=== PATIENT | female | born 1930 | race Caucasian/White ===

== ENCOUNTER 2018-03-25 11:23 | Inpatient (IN) ==
--- NOTE | 2018-03-25 11:38 | ERNOTE ---
Date of Service: 03/25/18 Time Seen by Provider: 03/25/18 11:38 Stated Complaint: sob Presenting Symptoms:: cough Source: patient Exam Limitations: no limitations Immunizations: IMMUNIZATION HX Immunizations Up to Date Yes History of Influenza Vaccine Yes Allergies/Adverse Reactions: Allergies atorvastatin [From Lipitor] Adverse Reaction (Unknown, Verified 03/25/18 11:37) cough codeine Adverse Reaction (Unknown, Verified 03/25/18 11:37) Vomiting morphine Adverse Reaction (Unknown, Verified 03/25/18 11:37) redness niacin [From Niaspan Extended-Release] Adverse Reaction (Unknown, Verified 03/25/18 11:37) red and shakey simvastatin [From Zocor] Adverse Reaction (Unknown, Verified 03/25/18 11:37) cough Home Medications: HOME MEDICATIONS cholecalciferol (vitamin D3) 1,000 unit capsule 1,000 unit PO DAILY 09/02/17 [Last Taken Unknown] levothyroxine 50 mcg tablet 50 mcg PO DAILY 09/02/17 [Last Taken Unknown] propranolol 20 mg tablet 20 mg PO DAILY #90 tab 12/21/17 [Last Taken Unknown] valsartan 160 mg tablet 160 mg PO DAILY #90 tab 01/18/18 [Last Taken Unknown] furosemide 20 mg tablet 20 mg PO DAILY #30 tab 01/25/18 [Last Taken Unknown] metformin 500 mg tablet 250 mg PO BID #90 tab 02/18/18 [Last Taken Unknown] Amoxicillin/Potassium Clav [Amox Tr-K Clv 875-125 mg Tab] 1 ea PO BID 03/25/18 [Last Taken Unknown] Benzonatate 100 mg PO PRN PRN 03/25/18 [Last Taken Unknown] Methylprednisolone [Medrol] 4 mg PO DAILY 03/25/18 [Last Taken Unknown] traMADol HCL [Tramadol HCl] 50 mg PO DAILY PRN 03/25/18 [Last Taken Unknown] - Pain Score Pain Score #1 Pain Score: 0 - History of Present Ilness Narrative: The patient is a 87 year old female who presents for dyspnea and chest pain which has been present since Thursday. There are associated symptoms of fatigue, nausea, cough and diarrhea. The patient denies pain. There are no alleviating factors. There are aggravating factors of activity. Previous treatments have included: neb treatments and was evaluated yesterday at [facility] but did not start atb that was rx. The past medical history includes: ulcerative colitis, depression, DM, diverticulitis, HTN and hypothyroid. The social hist ory is negative. The patient has had no known ill contacts. Patient reports sternal pain only with cough. Review of Systems - Review of Systems Constitutional: Present: fatigue. Absent: fever EYE: Present: no symptoms reported ENT: Present: no symptoms reported. Absent: ear pain, nasal drainage, sore throat Respiratory: Present: shortness of breath, cough Cardiology: Present: chest pain Gastrointestinal/Abdominal: Present: nausea, diarrhea. Absent: vomiting, abdominal pain Genitourinary: Present: no symptoms reported. Absent: dysuria, decreased urinary output Musculoskeletal: Present: no symptoms reported. Absent: back pain Skin: Present: no symptoms reported. Absent: rash Neurological: Present: no symptoms reported Endocrine: Present: no symptoms reported Hematologic/Lymphatic: Present: no symptoms reported Psych: Present: no symptoms reported All Other Systems: All systems neg except as marked Medical History (Last Reviewed 03/25/18 @ 11:46 by ZANDRA Avalos) Colonic polyp Onset Date: Unknown Depression Onset Date: Unknown Diabetes mellitus Onset Date: Unknown type II Diverticulitis of colon Onset Date: Unknown Hypercholesterolemia Onset Date: Unknown Hypertension Onset Date: Unknown Hypothyroidism (acquired) Onset Date: 12/10/09 Knee pain, left Onset Date: ~02/11/18 Shoulder pain, right Onset Date: ~02/11/18 Tremor, essential Onset Date: Unknown Ulcerative colitis Onset Date: Unknown Surgical History: Surgical History (Last Reviewed 03/25/18 @ 11:46 by ZANDRA Avalos) History of bilateral knee arthroplasty Onset Date: Unknown History of carpal tunnel release Onset Date: Unknown right History of left hip replacement Onset Date: Unknown History of lumbar surgery Onset Date: 06/2005 performed lower disc surgery, 1999 pt had spurs removed History of right hip replacement Onset Date: Unknown Hx of appendectomy Onset Date: 10/29/92 Hx of breast surgery Onset Date: 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 [facility] Hx of colonoscopy Onset Date: 01/21/06 Hx of hysterectomy Onset Date: 06/1993 Hx of knee surgery Onset Date: 1997 performed a right knee scope left knee repair Onset Date: Unknown Family History: Family History (Last Reviewed 03/25/18 @ 11:46 by ZANDRA Avalos) Mother Cancer bowel and kidney Father Heart disease Social History: Preferred Language Greek Smoking Status Never smoker Alcohol Use none Drug Use none (Last Updated 02/27/18 @ 14:22 by Balbir Ojeda MD) No Social History Section defined Physical Exam - Physical Exam General Appearance: Present: wd/wn, alert, moderate distress Head Exam: Present: normal inspection Eye Exam: Normal inspection: bilateral Ears, Nose, Throat: Present: normal ENT inspection, normal pharynx Neck: Present: normal inspection, nontender Respiratory: Present: chest nontender, respiratory distress, accessory muscle use - abdomen, decreased breath sounds - right mid lung. Absent: wheezing Cardiovascular/Chest: Present: regular rate, rhythm, no murmur Gastrointestinal/Abdominal: Present: normal bowel sounds, nontender, nondistended, soft, no organomegaly Extremity Exam: Absent: extremity edema Neurological Exam: Present: alert, oriented, normal mood/affect Skin Exam: Present: normal color, warm/dry Progress - Date and Time Seen: Date and Time: 03/25/18 13:36 Discussed case with . Patient will be admitted for acute admission due to hypoxia, pneumonia PSI IV, DM and renal insuff. - Results and Orders Patient's Lab Results:: I have reviewed the patient's lab results. - Vital Signs Patient's Vital Signs:: I have reviewed the patient's vital signs. Vital Signs: Vital Signs 03/25/18 11:33 Temperature 36.4 C Pulse Rate 88 Respiratory Rate 24 H Blood Pressure 138/67 O2 Sat by Pulse Oximetry 73 L - EKG EKG #1 EKG: NSR EKG read: Reviewed by me - X-Ray X-Ray #1 X-Ray: chest Interpretation: Reviewed by me X-ray Comments: X-RAY REPORT ~[id number] RAD/Chest PA & Lateral *~ Exam Date: 03/25/2018 11:43 Ordering Physician: Nisha DE PAZ HISTORY: Chest Pain. Additional history from technologist: TROUBLE BREATHING SINCE THURSDAY, JUST HAD A BREATHING TREATMENT. A LOT OF COUGHING, CHEST PAIN. TECHNIQUE: PA and lateral views of the chest were obtained. 2 images. COMPARISONS: None Available FINDINGS: Chest PA Lateral * Hypoinflated lung volumes. Patient has patchy peripheral airspace opacities, and peripheral reticulations/increased interstitial markings involving the bilateral lung bennett, predominantly mid to lower aspects. There is obscuration of the central vascular markings, with increased pulmonary vasculature suggested. No pneumothorax or pleural fluid collections. The cardiac silhouette is somewhat obscured by the multifocal opacities but no definite cardiac enlargement suggested. Mild tortuosity of the thoracic aorta noted, with overlying atherosclerotic vascular calcifications. Trachea is in normal position. Bones show degenerative changes of the spine. Patient has what appears to be degenerative changes of bilateral shoulders, likely chronic rotator cuff pathology is of both shoulders. IMPRESSION: 1. Hypoventilatory changes. 2. Patchy bilateral peripheral airspace opacities, and reticulations/increased interstitial markings. Increased vascular markings also suggested. Consider pulmonary vascular congestion/interstitial and alveolar edema (with etiologies to include CHF, volume overload) versus multifocal pneumonia/infectious process causing this appearance. Also consider acute respiratory distress syndrome. Recommend follow-up to document resolution, as underlying neoplasm would be difficult to exclude. 3. Additional comments are as above. Electronically signed by Deepak Haskins M.D.. - Progress/Reassessment Chief Complaint: Upper Respiratory Symptoms Progress:: Improved Departure Clinical Impression: Renal insufficiency, Hypoxia Pneumonia Qualifiers: Pneumonia type: due to unspecified organism Laterality: bilateral Lung location: lower lobe of lung Qualified Code(s): J18.1 - Lobar pneumonia, unspecified organism Diabetes mellitus Qualifiers: Diabetes mellitus type: type 2 Diabetes mellitus director long term care insulin use: without mcfp use Diabetes mellitus complication status: with hyperglycemia Qualified Code(s): E11.65 - Type 2 diabetes mellitus with hyperglycemia - Departure Disposition: Still a patient Condition: Fair
[2018-03-25] MEDS ORDERED: METHYLPREDNISOLONE SOD SUCC/PF 125 MG/2 ML VIAL IV ONE (11:51)
[2018-03-25] MEDS ORDERED: ALBUTEROL SULFATE/IPRATROPIUM 3 ML NEBU IH ONE (11:51)
[2018-03-25 11:59] LABS: Hematocrit 30.1 % (37.0-47.0); Mean Cell Volume 87.2 fl (78-100); Mean Corpuscular Hgb Conc 33.2 g/dl (32-36); Mean Platelet Volume 10.4 fl (8-12.5); Platelet Count 327 K/mm3 (150-450); Red Blood Count 3.45 M/mm3 (4.2-5.4); Red Cell Distribution Width 12.8 % (11.5-14.0); White Blood Count 30.9 K/mm3 (4.0-10.5)
[2018-03-25 12:12] LABS: Total Cells Counted 100
[2018-03-25 12:15] LABS: Prothrombin Time (Patient) 11.1 Seconds (9.0-11.0)
[2018-03-25 12:19] LABS: INR 1.11 INR (0.90-1.10); Partial Thrombolplastin Time 26.1 Seconds (24-32)
[2018-03-25] MEDS ORDERED: cefTRIAXone SODIUM 1,000 MG/100 ML BAG IV ONE (12:20)
[2018-03-25 12:22] LABS: ALT 52 U/L (19-67); Albumin * 2.6 gm/dl (3.4-5.0); Alkaline Phosphatase * 131 U/L (50-170); BUN/Creatinine Ratio 28.4 (9.0-21.6); Bilirubin, Total 1.2 mg/dL (0.0-1.1); Blood Urea Nitrogen 50 mg/dL (3-23); Ca. Corrected For Albumin 10.8 mg/dL (8.4-10.2); Carbon Dioxide 23.2 mmol/L (24-32.6); Chloride 97 mmol/L (97-106); Glucose * 404 mg/dL (70-110); Potassium 4.2 mmol/L (3.4-4.6); Sodium 133 mmol/L (132-142); Total Protein 7.7 gm/dL (6.2-8.2); Troponin I Less than 0.017 ng/mL (0.00-0.10)
[2018-03-25] MEDS ORDERED: NORMAL SALINE 500 ML IV ONE (12:24)
[2018-03-25 12:34] LABS: AST 58 U/L (0-48)
[2018-03-25 12:46] LABS: Atypical (Reactive) Lymph 1 % (0-2); Band 1 % (0-2.0); Dohle Bodies 1+; Lymphocyte 8 % (20-51); Neutrophil 90 % (42-75); Neutrophil # 27.8 K/mm3 (1.3-6.0); Platelet Estimate Normal (NORMAL)
[2018-03-25] MEDS ORDERED: AZITHROMYCIN 250 MG TABLET PO ONE (13:15)
[2018-03-25] MEDS ORDERED: NORMAL SALINE 1,000 ML IV PRN (13:26)
[2018-03-25] MEDS ORDERED: traMADol HCL 50 MG TABLET PO PRN (15:59)
[2018-03-25] MEDS ORDERED: BENZONATATE 100 MG CAPSULE PO PRN (15:59)
[2018-03-25] MEDS: INSULIN LISPRO 100 UNITS/ML VIAL SC SCH ×3 (16:07→20:54)
--- NOTE | 2018-03-25 16:41 | HP ---
Chief Complaint - Chief Complaint Date of Service: 03/25/18 Time of Service: 16:22 Chief Complaint: weakness/cough History of Present Illness: Adelina Lanier, is an 87-year-old white female, with past medical history of diabetes mellitus type 2, ulcerative colitis, hyperlipidemia, hypothyroidism, hypertension, who was admitted on 03/25/2018 because of increasing shortness of breath and generalized weakness. The patient started having cough with on and off production of phlegm since 5 days prior to admission. She started getting generalized weakness with with nausea and diarrhea and so she went to the walk- in clinic in [facility] where she was started on antibiotics and giving given breathing treatments and nebs and sent home. The emergency room she was found to be hypoxic (75% on RA), tachypneic (RR 24). She was also found to have an elevated white blood cell count of 30,000+, and a chest x-ray which showed b/l pneumonia vs pulmonary congestion congestion versus ARDS, Cr of 1.7 with a GFR 29. The patient was then admitted for further treatment. Medical History (Last Reviewed 03/25/18 @ 14:13 by Deng Krishnan RN) Colonic polyp Onset Date: Unknown Depression Onset Date: Unknown Diabetes mellitus Onset Date: Unknown type II Diverticulitis of colon Onset Date: Unknown Hypercholesterolemia Onset Date: Unknown Hypertension Onset Date: Unknown Hypothyroidism (acquired) Onset Date: 12/10/09 Knee pain, left Onset Date: ~02/11/18 Shoulder pain, right Onset Date: ~02/11/18 Tremor, essential Onset Date: Unknown Ulcerative colitis Onset Date: Unknown Surgical History: Surgical History (Last Reviewed 03/25/18 @ 14:14 by Deng Krishnan RN) History of bilateral knee arthroplasty Onset Date: Unknown History of carpal tunnel release Onset Date: Unknown right History of left hip replacement Onset Date: Unknown History of lumbar surgery Onset Date: 06/2005 performed lower disc surgery, 1999 pt had spurs removed History of right hip replacement Onset Date: Unknown Hx of appendectomy Onset Date: 10/29/92 Hx of breast surgery Onset Date: 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 Smoking Status Never smoker Have you smoked in the past 12 No months Do you dip or chew tobacco No Alcohol Use none Drug Use none (Last Updated 02/27/18 @ 14:22 by Balbir Ojeda MD) No Social History Section defined Review Of Systems (GEN) - Review of Systems Generalized/Overall Review: Present: Weakness. Absent: Chills, Fever EENTM: Absent: Blurred Vision Respiratory: Present: Cough, Shortness of Breath, Wheezing Cardiac: Absent: Chest Pain, Edema, Palpitations Abdominal: Present: Nausea, Diarrhea. Absent: Vomiting Genitourinary: Absent: Urgency, Frequency Musculoskeletal: Absent: Joint Pain, Back Pain Neurological: Absent: Anxiety, Depressed Skin: Absent: Bruising Endocrine: Absent: Intolerance to Cold, Intolerance to Heat Immunizations: IMMUNIZATION HX Immunizations Up to Date Yes History of Influenza Vaccine Yes Allergies/Adverse Reactions: Allergies Allergy/AdvReac Type Severity Reaction Status Date / Time atorvastatin [From Lipitor] AdvReac Unknown cough Verified 03/25/18 14:15 codeine AdvReac Unknown Vomiting Verified 03/25/18 14:15 morphine AdvReac Unknown redness Verified 03/25/18 14:15 niacin AdvReac Unknown red and Verified 03/25/18 14:15 [From Niaspan shakey Extended-Release] simvastatin [From Zocor] AdvReac Unknown cough Verified 03/25/18 14:15 Home Medications: HOME MEDICATIONS cholecalciferol (vitamin D3) 1,000 unit capsule 1,000 unit PO DAILY 09/02/17 [Last Taken Unknown] levothyroxine 50 mcg tablet 50 mcg PO DAILY 09/02/17 [Last Taken Unknown] propranolol 20 mg tablet 20 mg PO DAILY #90 tab 12/21/17 [Last Taken Unknown] furosemide 20 mg tablet 20 mg PO DAILY #30 tab 01/25/18 [Last Taken Unknown] metformin 500 mg tablet 250 mg PO BID #90 tab 02/18/18 [Last Taken Unknown] Amoxicillin/Potassium Clav [Amox Tr-K Clv 875-125 mg Tab] 1 ea PO BID 03/25/18 [Last Taken Unknown] Benzonatate 100 mg PO PRN PRN 03/25/18 [Last Taken Unknown] Methylprednisolone [Medrol] 4 mg PO DAILY 03/25/18 [Last Taken Unknown] Pravastatin Sodium 40 mg PO DAILY 03/25/18 [Last Taken Unknown] Valsartan 100 mg PO DAILY 03/25/18 [Last Taken Unknown] traMADol HCL [Tramadol HCl] 50 mg PO DAILY PRN 03/25/18 [Last Taken Unknown] Exam - Exam Vital Signs: Vital Signs - Last Taken Temp 36.6 C 03/25/18 14:33 Pulse 84 03/25/18 14:33 Resp 20 03/25/18 14:33 BP 143/60 03/25/18 14:33 Pulse Ox 92 L 03/25/18 14:33 Constitutional: Present: Alert, Oriented x3, Cooperative, Elderly ENT Exam: Present: hearing grossly normal Eye Exam: bilateral eye: normal inspection, PERRL, EOMI Neck: Present: supple Respiratory: Present: decreased breath sounds, crackles, wheezing Cardiovascular/Chest: Present: regular rate, rhythm, no JVD, no murmur Abdomen: Present: Normal bowel sounds, soft, nontender, nondistended Extremity: Present: no pedal edema, no calf tenderness Diagnostic Studies: Abnormal Lab Results 03/25/18 03/25/18 03/25/18 Range/Units 11:55 11:55 11:55 WBC 30.9 H (4.0-10.5) K/mm3 RBC 3.45 L (4.2-5.4) M/mm3 Hgb 10.0 L (12.5-16.0) gm/dL Hct 30.1 L (37.0-47.0) % Neutrophils % (Manual) 90 H (42-75) % Lymphocytes % (Manual) 8 L (20-51) % Neutrophils # (Manual) 27.8 H (1.3-6.0) K/mm3 PT 11.1 H (9.0-11.0) Seconds INR (Anticoag Therapy) 1.11 H (0.90-1.10) INR pCO2 30.7 L (32.0-45.0) mmHg pO2 74.8 L (83.0-108.0) mmHg HCO3 18.9 L (21.0-28.0) mmol/L Base Excess -4.9 L (-2.0-3.0) mmol/L Carbon Dioxide (24-32.6) mmol/L Anion Gap (6.8-13.8) mmol/L BUN (3-23) mg/dL Creatinine (0.4-1.4) mg/dL Est GFR (Non-Af Amer) (60-130) mL/min BUN/Creatinine Ratio (9.0-21.6) Random Glucose (70-110) mg/dL Calcium Adj for Albumin (8.4-10.2) mg/dL Total Bilirubin (0.0-1.1) mg/dL AST (0-48) U/L Albumin (3.4-5.0) gm/dl 03/25/18 Range/Units 11:55 WBC (4.0-10.5) K/mm3 RBC (4.2-5.4) M/mm3 Hgb (12.5-16.0) gm/dL Hct (37.0-47.0) % Neutrophils % (Manual) (42-75) % Lymphocytes % (Manual) (20-51) % Neutrophils # (Manual) (1.3-6.0) K/mm3 PT (9.0-11.0) Seconds INR (Anticoag Therapy) (0.90-1.10) INR pCO2 (32.0-45.0) mmHg pO2 (83.0-108.0) mmHg HCO3 (21.0-28.0) mmol/L Base Excess (-2.0-3.0) mmol/L Carbon Dioxide 23.2 L (24-32.6) mmol/L Anion Gap 17.0 H (6.8-13.8) mmol/L BUN 50 H (3-23) mg/dL Creatinine 1.76 H (0.4-1.4) mg/dL Est GFR (Non-Af Amer) 29 L (60-130) mL/min BUN/Creatinine Ratio 28.4 H (9.0-21.6) Random Glucose 404 H (70-110) mg/dL Calcium Adj for Albumin 10.8 H (8.4-10.2) mg/dL Total Bilirubin 1.2 H (0.0-1.1) mg/dL AST 58 H (0-48) U/L Albumin 2.6 L (3.4-5.0) gm/dl Laboratory Results WBC 30.9 K/mm3 (4.0-10.5) H 03/25/18 11:55 RBC 3.45 M/mm3 (4.2-5.4) L 03/25/18 11:55 Hgb 10.0 gm/dL (12.5-16.0) L 03/25/18 11:55 Hct 30.1 % (37.0-47.0) L 03/25/18 11:55 MCV 87.2 fl (78-100) 03/25/18 11:55 MCH 29.0 pg (27-31) 03/25/18 11:55 MCHC 33.2 g/dl (32-36) 03/25/18 11:55 RDW 12.8 % (11.5-14.0) 03/25/18 11:55 Plt Count 327 K/mm3 (150-450) 03/25/18 11:55 MPV 10.4 fl (8-12.5) 03/25/18 11:55 Neutrophils % (Manual) 90 % (42-75) H 03/25/18 11:55 Band Neuts % (Manual) 1 % (0-2.0) 03/25/18 11:55 Lymphocytes % (Manual) 8 % (20-51) L 03/25/18 11:55 Neutrophils # (Manual) 27.8 K/mm3 (1.3-6.0) H 03/25/18 11:55 Lymphocytes # (Manual) 2.5 k/mm3 (1.5-3.5) 03/25/18 11:55 Atypic/Reactive Lymphs 1 % (0-2) 03/25/18 11:55 Toxic Vacuolation Trace 03/25/18 11:55 Dohle Bodies 1+ 03/25/18 11:55 Platelet Estimate Normal (NORMAL) 03/25/18 11:55 PT 11.1 Seconds (9.0-11.0) H 03/25/18 11:55 INR (Anticoag Therapy) 1.11 INR (0.90-1.10) H 03/25/18 11:55 PTT (Evelyne) 26.1 Seconds (24-32) 03/25/18 11:55 pCO2 30.7 mmHg (32.0-45.0) L 03/25/18 11:55 pO2 74.8 mmHg (83.0-108.0) L 03/25/18 11:55 HCO3 18.9 mmol/L (21.0-28.0) L 03/25/18 11:55 Total CO2 19.8 mmol/L (19.0-24.0) 03/25/18 11:55 Base Excess -4.9 mmol/L (-2.0-3.0) L 03/25/18 11:55 ABG pH 7.41 (7.35-7.45) 03/25/18 11:55 ABG O2 Sat (Measured) 95.3 % (94.0-98.0) 03/25/18 11:55 Sodium 133 mmol/L (132-142) 03/25/18 11:55 Plasma Sodium 138 mmol/L (130-142) 03/25/18 11:55 Potassium 4.2 mmol/L (3.4-4.6) 03/25/18 11:55 Chloride 97 mmol/L (97-106) 03/25/18 11:55 Carbon Dioxide 23.2 mmol/L (24-32.6) L 03/25/18 11:55 Anion Gap 17.0 mmol/L (6.8-13.8) H 03/25/18 11:55 BUN 50 mg/dL (3-23) H 03/25/18 11:55 Creatinine 1.76 mg/dL (0.4-1.4) H 03/25/18 11:55 Est GFR (Non-Af Amer) 29 mL/min (60-130) L 03/25/18 11:55 BUN/Creatinine Ratio 28.4 (9.0-21.6) H 03/25/18 11:55 Random Glucose 404 mg/dL (70-110) H 03/25/18 11:55 Lactic Acid, Venous 2.0 mmol/L (0.4-2.0) 03/25/18 11:55 Calcium 10.0 mg/dL (7.9-10.9) 03/25/18 11:55 Calcium Adj for Albumin 10.8 mg/dL (8.4-10.2) H 03/25/18 11:55 Total Bilirubin 1.2 mg/dL (0.0-1.1) H 03/25/18 11:55 AST 58 U/L (0-48) H 03/25/18 11:55 ALT 52 U/L (19-67) 03/25/18 11:55 Alkaline Phosphatase 131 U/L (50-170) 03/25/18 11:55 Troponin I Less than 0.017 ng/mL (0.00-0.10) 03/25/18 11:55 Total Protein 7.7 gm/dL (6.2-8.2) 03/25/18 11:55 Albumin 2.6 gm/dl (3.4-5.0) L 03/25/18 11:55 Influenza Type A Ag Negative (NEGATIVE) 03/25/18 11:55 Influenza Type B Ag Negative (NEGATIVE) 03/25/18 11:55 Assessment/Plan - Assessment/Plan (1) Hypoxia Assessment: continue with O2 2 L NC. Problem: Acute (2) Pneumonia Assessment: CAP vs aspiration pneumonia . continue with IV antibiotics. will also start her on breathing treatments and IV solumedrol. ADDENDUM- patient was choking wth liquids- will get ST eval and treat. Problem: Acute Qualifiers: Pneumonia type: due to unspecified organism Laterality: bilateral Lung location: lower lobe of lung Qualified Code(s): J18.1 - Lobar pneumonia, unspecified organism (3) Hypothyroidism Assessment: continue with home medications Problem: Chronic Qualifiers: Hypothyroidism type: unspecified Qualified Code(s): E03.9 - Hypothyroidism, unspecified (4) CRF (chronic renal failure) Assessment: continue with IVF. will d/c metformin Problem: Chronic Qualifiers: Chronic kidney disease stage: stage 4 (severe) Qualified Code(s): N18.4 - Chronic kidney disease, stage 4 (severe) (5) Hypertension Assessment: whill change her valsartan to losartn 50 mg PO q daily. Problem: Chronic Qualifiers: Hypertension type: essential hypertension (6) Diabetes mellitus Assessment: d/c metformin and will statr her on accuxheck with Lispro coverage , moderate dose protocol. Problem: Chronic Qualifiers: Diabetes mellitus type: type 2 Diabetes mellitus termite control representative insulin use: without jail use Diabetes mellitus complication status: with kidney comp lications Diabetes mellitus complication detail: with chronic kidney disease Chronic kidney disease stage: stage 4 (severe) Qualified Code(s): E11.22 - Type 2 diabetes mellitus with diabetic chronic kidney disease; N18.4 - Chronic kidney disease, stage 4 (severe) (7) Choking due to food (regurgitated) Assessment: will get ST eval and treatment. in the meantime will do nectar thickened fluid and mechanical soft diet. Problem: Acute Qualifiers: Encounter type: initial encounter Qualified Code(s): T17.320A - Food in larynx causing asphyxiation, initial encounter
[2018-03-25] MEDS: ENOXAPARIN SODIUM 30 MG/0.3 ML SYRG SC SCH (17:30)
[2018-03-25] MEDS: METHYLPREDNISOLONE SOD SUCC/PF 40 MG/ML VIAL IV SCH ×2 (17:30→23:09)
[2018-03-25] MEDS: ALBUTEROL SULFATE/IPRATROPIUM 3 ML NEBU IH SCH ×2 (17:57→17:59)
[2018-03-26] MEDS: ALBUTEROL SULFATE/IPRATROPIUM 3 ML NEBU IH SCH ×4 (00:06→18:26)
[2018-03-26] MEDS: METHYLPREDNISOLONE SOD SUCC/PF 40 MG/ML VIAL IV SCH ×3 (05:30→20:08)
[2018-03-26 07:37] LABS: Hematocrit 31.6 % (37.0-47.0); Hemoglobin 10.2 gm/dL (12.5-16.0); Mean Cell Volume 88.3 fl (78-100); Mean Corpuscular Hemoglobin 28.5 pg (27-31); Mean Corpuscular Hgb Conc 32.3 g/dl (32-36); Mean Platelet Volume 10.5 fl (8-12.5); Platelet Count 377 K/mm3 (150-450); Red Blood Count 3.58 M/mm3 (4.2-5.4); White Blood Count 41.5 K/mm3 (4.0-10.5)
[2018-03-26 07:40] LABS: Anion Gap 15.4 mmol/L (6.8-13.8); BUN/Creatinine Ratio 29.3 (9.0-21.6); Calcium * 9.3 mg/dL (7.9-10.9); Carbon Dioxide 23.8 mmol/L (24-32.6); Estimated Creat Clear 19.2; Potassium 4.2 mmol/L (3.4-4.6); Total Cells Counted 100
[2018-03-26] MEDS: INSULIN LISPRO 100 UNITS/ML VIAL SC SCH ×4 (07:44→20:35)
[2018-03-26] MEDS: LEVOTHYROXINE SODIUM 50 MCG TABLET PO SCH (07:45)
[2018-03-26 07:52] LABS: Band 8 % (0-2.0); Lymphocyte 7 % (20-51); Neutrophil 85 % (42-75); Neutrophil # 35.3 K/mm3 (1.3-6.0); Platelet Estimate Normal (NORMAL); RBC Morphology Normal (NORMAL)
[2018-03-26] MEDS ORDERED: FUROSEMIDE 10 MG/ML VIAL IV ONE (08:00)
[2018-03-26] MEDS: PROPRANOLOL HCL 20 MG TABLET PO SCH (08:07)
[2018-03-26] MEDS: SACCHAROMYCES BOULARDII 250 MG CAPSULE PO SCH ×2 (08:07→20:19)
[2018-03-26] MEDS: FUROSEMIDE 20 MG TABLET PO SCH (08:08)
[2018-03-26] MEDS: AZITHROMYCIN 250 MG TABLET PO SCH (08:12)
[2018-03-26] MEDS: PIPERACILLIN SODIUM/TAZOBACTAM 3.375 GM in DEXTROSE 5 % IN WATER 100 ML IV SCH ×4 (08:14→20:12)
[2018-03-26] MEDS ORDERED: LOSARTAN POTASSIUM 50 MG TABLET PO SCH (09:00)
--- NOTE | 2018-03-26 09:53 | PN ---
Subjective - Date and Time Seen Date: 03/26/18 Time: 09:25 Subjective Narrative: Patient found to have low O2 saturation. CPAP started. Patient says she is not worst or better than yesterday. WBC is up . Objective - Review of Systems Generalized/Overall Review: Reports: Weakness. Denies: Chills, Fever EENTM: Denies: Blurred Vision Respiratory: Reports: Cough, Shortness of Breath. Denies: Wheezing Cardiac: Denies: Chest Pain, Edema, Palpitations Abdominal: Denies: Nausea, Vomiting Genitourinary Symptoms: Denies: Urgency, Frequency Musculoskeletal Complaints: Reports: Joint Pain Neurological: Denies: Headache, Tremors Skin: Denies: Rash, Bruising Endocrine: Denies: Intolerance to Cold, Intolerance to Heat - Vitals Vitals: Last Vital Signs Temp 36.4 C 03/26/18 07:00 Pulse 98 03/26/18 08:20 Resp 24 H 03/26/18 07:00 BP 180/82 H 03/26/18 08:20 Pulse Ox 88 L 03/26/18 07:00 - Abnormal Lab Findings Abnormal Lab Findings: Abnormal Lab Results 03/25/18 03/25/18 03/25/18 Range/Units 11:55 11:55 11:55 WBC 30.9 H (4.0-10.5) K/mm3 RBC 3.45 L (4.2-5.4) M/mm3 Hgb 10.0 L (12.5-16.0) gm/dL Hct 30.1 L (37.0-47.0) % Neutrophils % (Manual) 90 H (42-75) % Band Neuts % (Manual) (0-2.0) % Lymphocytes % (Manual) 8 L (20-51) % Neutrophils # (Manual) 27.8 H (1.3-6.0) K/mm3 PT 11.1 H (9.0-11.0) Seconds INR (Anticoag Therapy) 1.11 H (0.90-1.10) INR pCO2 30.7 L (32.0-45.0) mmHg pO2 74.8 L (83.0-108.0) mmHg HCO3 18.9 L (21.0-28.0) mmol/L Total CO2 (19.0-24.0) mmol/L Base Excess -4.9 L (-2.0-3.0) mmol/L ABG pH (7.35-7.45) ABG O2 Sat (Measured) (94.0-98.0) % Carbon Dioxide (24-32.6) mmol/L Anion Gap (6.8-13.8) mmol/L BUN (3-23) mg/dL Creatinine (0.4-1.4) mg/dL Est GFR (Non-Af Amer) (60-130) mL/min BUN/Creatinine Ratio (9.0-21.6) Random Glucose (70-110) mg/dL Calcium Adj for Albumin (8.4-10.2) mg/dL Total Bilirubin (0.0-1.1) mg/dL AST (0-48) U/L B-Natriuretic Peptide (5-550) pg/mL Albumin (3.4-5.0) gm/dl Procalcitonin (0.05-0.50) ng/mL 03/25/18 03/25/18 03/25/18 Range/Units 11:55 11:55 16:02 WBC (4.0-10.5) K/mm3 RBC (4.2-5.4) M/mm3 Hgb (12.5-16.0) gm/dL Hct (37.0-47.0) % Neutrophils % (Manual) (42-75) % Band Neuts % (Manual) (0-2.0) % Lymphocytes % (Manual) (20-51) % Neutrophils # (Manual) (1.3-6.0) K/mm3 PT (9.0-11.0) Seconds INR (Anticoag Therapy) (0.90-1.10) INR pCO2 (32.0-45.0) mmHg pO2 (83.0-108.0) mmHg HCO3 (21.0-28.0) mmol/L Total CO2 (19.0-24.0) mmol/L Base Excess (-2.0-3.0) mmol/L ABG pH (7.35-7.45) ABG O2 Sat (Measured) (94.0-98.0) % Carbon Dioxide 23.2 L (24-32.6) mmol/L Anion Gap 17.0 H (6.8-13.8) mmol/L BUN 50 H (3-23) mg/dL Creatinine 1.76 H (0.4-1.4) mg/dL Est GFR (Non-Af Amer) 29 L (60-130) mL/min BUN/Creatinine Ratio 28.4 H (9.0-21.6) Random Glucose 404 H (70-110) mg/dL Calcium Adj for Albumin 10.8 H (8.4-10.2) mg/dL Total Bilirubin 1.2 H (0.0-1.1) mg/dL AST 58 H (0-48) U/L B-Natriuretic Peptide 3081 H (5-550) pg/mL Albumin 2.6 L (3.4-5.0) gm/dl Procalcitonin 0.55 H (0.05-0.50) ng/mL 03/26/18 03/26/18 03/26/18 Range/Units 07:25 07:25 07:40 WBC 41.5 H D (4.0-10.5) K/mm3 RBC 3.58 L (4.2-5.4) M/mm3 Hgb 10.2 L (12.5-16.0) gm/dL Hct 31.6 L (37.0-47.0) % Neutrophils % (Manual) 85 H (42-75) % Band Neuts % (Manual) 8 H (0-2.0) % Lymphocytes % (Manual) 7 L (20-51) % Neutrophils # (Manual) 35.3 H (1.3-6.0) K/mm3 PT (9.0-11.0) Seconds INR (Anticoag Therapy) (0.90-1.10) INR pCO2 (32.0-45.0) mmHg pO2 56.9 L (83.0-108.0) mmHg HCO3 17.4 L (21.0-28.0) mmol/L Total CO2 18.5 L (19.0-24.0) mmol/L Base Excess -8.0 L (-2.0-3.0) mmol/L ABG pH 7.31 L (7.35-7.45) ABG O2 Sat (Measured) 87.4 L (94.0-98.0) % Carbon Dioxide 23.8 L (24-32.6) mmol/L Anion Gap 15.4 H (6.8-13.8) mmol/L BUN 51 H (3-23) mg/dL Creatinine 1.74 H (0.4-1.4) mg/dL Est GFR (Non-Af Amer) 29 L (60-130) mL/min BUN/Creatinine Ratio 29.3 H (9.0-21.6) Random Glucose 331 H (70-110) mg/dL Calcium Adj for Albumin (8.4-10.2) mg/dL Total Bilirubin (0.0-1.1) mg/dL AST (0-48) U/L B-Natriuretic Peptide (5-550) pg/mL Albumin (3.4-5.0) gm/dl Procalcitonin (0.05-0.50) ng/mL - Exam Constitutional: Present: Alert, Oriented x3, Cooperative, Elderly ENT Exam: Present: hearing grossly normal Neck: Present: supple Respiratory: Present: decreased breath sounds, crackles, No wheezing Cardiovascular/Chest: Present: regular rate, rhythm, no JVD, no murmur Abdomen: Present: Normal bowel sounds, soft, nontender, nondistended Extremity: Present: no pedal edema, no calf tenderness Cauti Physician Documentation - Urinary Catheter Management Suprapubic Urethral Indwelling: No Assessment/Plan - Problems/Diagnosis (1) Hypoxia Problem: Acute Narrative: due to pneumonia r/o due to pulmonary congestion. IV lasix given. hold IVF and saline lock with flushes. continue with breathing treatment. will get CXR. . ABG shows normal AG metabolic acidosis with respiratory alkalosis. will add lactic acid ( unlikely as this would be AG MAc) to her blood work and urine for electolytes to see if with RTA. (2) Pneumonia Problem: Acute Qualifiers: Pneumonia type: due to unspecified organism Laterality: bilateral Lung location: lower lobe of lung Qualified Code(s): J18.1 - Lobar pneumonia, unspecified organism Narrative: WBC is up. IV solumedrol started yesterday. will change her IV rocephin + azithromycin to IV zosyn + azithromycin. consider adding IV vancomycin if still w/o improvement. consider perpipheral smear if still increasing WBC. will do a follow CXR. (3) Hypothyroidism Problem: Chronic Qualifiers: Hypothyroidism type: unspecified Qualified Code(s): E03.9 - Hypothyroidism, unspecified (4) CRF (chronic renal failure) Problem: Chronic Qualifiers: Chronic kidney disease stage: stage 4 (severe) Qualified Code(s): N18.4 - Chronic kidney disease, stage 4 (severe) (5) Hypertension Problem: Chronic Qualifiers: Hypertension type: essential hypertension Qualified Code(s): I10 - Essential (primary) hypertension (6) Diabetes mellitus Problem: Chronic Qualifiers: Diabetes mellitus type: type 2 Diabetes mellitus director long term care insulin use: without director long term care use Diabetes mellitus complication status: with kidney complications Diabetes mellitus complication detail: with chronic kidney disease Chronic kidney disease stage: stage 4 (severe) Qualified Code(s): E11.22 - Type 2 diabetes mellitus with diabetic chronic kidney disease; N18.4 - Chronic kidney disease, stage 4 (severe) (7) Choking due to food (regurgitated) Problem: Acute Qualifiers: Encounter type: initial encounter Qualified Code(s): T17.320A - Food in larynx causing asphyxiation, initial encounter
[2018-03-26] MEDS: ENOXAPARIN SODIUM 30 MG/0.3 ML SYRG SC SCH (17:51)
[2018-03-26] MEDS: ROSUVASTATIN CALCIUM 10 MG TABLET PO SCH (20:24)
[2018-03-26] MEDS: INSULIN GLARGINE,HUM.REC.ANLOG 100 UNITS/ML VIAL SC SCH (20:38)
[2018-03-27] MEDS: ALBUTEROL SULFATE/IPRATROPIUM 3 ML NEBU IH SCH ×4 (00:08→18:17)
[2018-03-27] MEDS: METHYLPREDNISOLONE SOD SUCC/PF 40 MG/ML VIAL IV SCH ×2 (00:28→05:41)
[2018-03-27] MEDS: LEVOTHYROXINE SODIUM 50 MCG TABLET PO SCH (06:30)
[2018-03-27] MEDS: INSULIN LISPRO 100 UNITS/ML VIAL SC SCH ×4 (07:41→20:12)
[2018-03-27] MEDS: PIPERACILLIN SODIUM/TAZOBACTAM 3.375 GM in DEXTROSE 5 % IN WATER 100 ML IV SCH ×4 (08:08→20:06)
[2018-03-27] MEDS: PROPRANOLOL HCL 20 MG TABLET PO SCH (08:39)
[2018-03-27] MEDS: FUROSEMIDE 20 MG TABLET PO SCH (08:39)
[2018-03-27] MEDS: SACCHAROMYCES BOULARDII 250 MG CAPSULE PO SCH ×2 (08:39→20:11)
[2018-03-27] MEDS: AZITHROMYCIN 250 MG TABLET PO SCH (08:40)
--- NOTE | 2018-03-27 11:00 | PN ---
Subjective - Date and Time Seen Date: 03/27/18 Time: 08:45 Subjective Narrative: Adelina Lanier is an 87-year-old female patient of who was admitted on 03/25/2018 for pneumonia, renal insufficiency, and diabetes. She requested to be placed on hospice but she has no support at home and will be unable to care for herself and her home. Her son is coming in today and will arrive this afternoon. She is feeling better today feels like she has more en ergy and strength and is getting better. She has required an increase in her FiO2 and NRB and CPAP. She is at 45% FiO2. She does not use oxygen at home. There has been improvement in her white count and lactic acid levels. She has a flutter device but can't remember to use it. He'll continue with current antibiotic therapy and respiratory therapy. We'll wean her off her oxygen as it allows. Objective - Review of Systems Generalized/Overall Review: Reports: Weakness, Malaise, Fatigue. Denies: Chills, Fever EENTM: Reports: No Symptoms Reported Respiratory: Reports: Cough - Complains of having a dark productive sputum but denies blood. Cardiac: Reports: No Symptoms Reported Abdominal: Reports: No Symptoms Reported Genitourinary Symptoms: Reports: No Symptoms Reported Musculoskeletal Complaints: Reports: No Symptoms Reported Neurological: Reports: No Symptoms Reported Skin: Reports: No Symptoms Reported Endocrine: Reports: No Symptoms Reported - Vitals Vitals: Last Vital Signs Temp 36.7 C 03/27/18 06:46 Pulse 103 H 03/27/18 08:39 Resp 32 H 03/27/18 06:46 BP 143/65 03/27/18 08:39 Pulse Ox 93 03/27/18 06:46 - Abnormal Lab Findings Abnormal Lab Findings: Abnormal Lab Results 03/26/18 03/26/18 Range/Units 13:44 16:10 Lactic Acid, Venous 2.4 H* (0.4-2.0) mmol/L Ur Random Chloride 132 H (55-125) - Exam Constitutional: Present: Alert, Oriented x3, Cooperative, Well developed, Well nourished, Mild distress ENT Exam: Present: normal ENT inspection, hearing grossly normal, pharynx normal Neck: Present: non-tender, full range of motion, supple, normal inspection, trachea midline Breasts: Present: Exam deferred Respiratory: Present: chest non-tender, decreased breath sounds - On the right., crackles, rhonchi - In the right chest heard both anterior and posterior. The left lungs clear. Diminished breath sounds on the right also.. Absent: No wheezing Cardiovascular/Chest: Present: normal peripheral pulses, regular rate, rhythm, no chest tenderness, no edema, no gallop, no JVD, no murmur, no rub Abdomen: Present: Normal bowel sounds, soft, nontender, nondistended, no rebound tenderness, no hepatospenomegaly, no masses /Rectal: Present: Exam deferred Extremity: Present: normal range of motion, non-tender, normal inspection, no pedal edema, no calf tenderness, normal capillary refill Skin Exam: Present: normal color, warm/dry, no cyanosis Lymphatic: Present: no adenopathy Neurologic: Present: electric meter tester shop II-XII nml as tested, no motor/sensory deficits, alert Appearance: Present: appropriate appearance, appropriate insight, neat, no memory impairment Eye contact: Present: cooperative, good eye contact Thoughts: Present: normal thought pattern, no apparent hallucination Cauti Physician Documentation - Urinary Catheter Management Suprapubic Cath placed during this visit: no Urethral Indwelling: No Reason for Continuing Indwelling Catheter: Other - 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 Continue with current IV fluid replacement 2. Continue antibiotic therapy 3. Progress diet as tolerated 4. Ordered a flutter device and encouraged her to use it every couple of hours while awake 5. Incentive spirometry every couple of hours while awake - Problems/Diagnosis (1) Pneumonia Problem: Acute Qualifiers: Pneumonia type: due to unspecified organism Laterality: bilateral Lung location: lower lobe of lung Qualified Code(s): J18.1 - Lobar pneumonia, unspecified organism (2) Renal insufficiency Problem: Acute (3) Hypoxia Problem: Acute (4) Diabetes mellitus Problem: Chronic Qualifiers: Diabetes mellitus type: type 2 Diabetes mellitus customer account specialist insulin use: without customer account specialist use Diabetes mellitus complication status: with kidney complications Diabetes mellitus complication detail: with chronic kidney disease Chronic kidney disease stage: stage 4 (severe) Qualified Code(s): E11.22 - Type 2 diabetes mellitus with diabetic chronic kidney disease; N18.4 - Chronic kidney disease, stage 4 (severe)
[2018-03-27] MEDS ORDERED: INSULIN LISPRO 100 UNITS/ML VIAL SC ONE (14:00)
[2018-03-27] MEDS: ENOXAPARIN SODIUM 30 MG/0.3 ML SYRG SC SCH (17:14)
[2018-03-27] MEDS: ROSUVASTATIN CALCIUM 10 MG TABLET PO SCH (20:10)
[2018-03-27] MEDS: INSULIN GLARGINE,HUM.REC.ANLOG 100 UNITS/ML VIAL SC SCH (20:14)
[2018-03-27] MEDS: METOPROLOL TARTRATE 25 MG TABLET PO SCH (23:08)
[2018-03-28] MEDS: ALBUTEROL SULFATE/IPRATROPIUM 3 ML NEBU IH SCH ×4 (00:06→18:09)
[2018-03-28] MEDS: ALBUTEROL SULFATE 2.5 MG/0.5 ML VIAL.NEB IH PRN (03:40)
[2018-03-28 06:33] LABS: Hematocrit 29.6 % (37.0-47.0); Hemoglobin 9.7 gm/dL (12.5-16.0); Mean Cell Volume 86.5 fl (78-100); Mean Corpuscular Hemoglobin 28.4 pg (27-31); Mean Corpuscular Hgb Conc 32.8 g/dl (32-36); Mean Platelet Volume 10.2 fl (8-12.5); Platelet Count 321 K/mm3 (150-450); Red Blood Count 3.42 M/mm3 (4.2-5.4); Red Cell Distribution Width 13.2 % (11.5-14.0); White Blood Count 35.2 K/mm3 (4.0-10.5)
[2018-03-28 06:46] LABS: Total Cells Counted 100
[2018-03-28 06:55] LABS: Albumin * 2.2 gm/dl (3.4-5.0); Anion Gap 16.7 mmol/L (6.8-13.8); BUN/Creatinine Ratio 40.3 (9.0-21.6); Bilirubin, Total 0.8 mg/dL (0.0-1.1); Ca. Corrected For Albumin 10.3 mg/dL (8.4-10.2); Calcium * 9.2 mg/dL (7.9-10.9); Carbon Dioxide 26.7 mmol/L (24-32.6); Potassium 3.4 mmol/L (3.4-4.6); Total Protein 6.4 gm/dL (6.2-8.2)
[2018-03-28 07:05] LABS: Lymphocyte 6 % (20-51); Monocyte 3 % (0-9); Neutrophil 91 % (42-75)
[2018-03-28] MEDS: INSULIN LISPRO 100 UNITS/ML VIAL SC SCH ×4 (07:23→21:09)
[2018-03-28] MEDS: LEVOTHYROXINE SODIUM 50 MCG TABLET PO SCH (07:29)
[2018-03-28 07:31] LABS: Platelet Estimate Normal (NORMAL); RBC Morphology Normal (NORMAL)
[2018-03-28] MEDS: PIPERACILLIN SODIUM/TAZOBACTAM 3.375 GM in DEXTROSE 5 % IN WATER 100 ML IV SCH ×4 (08:05→20:44)
[2018-03-28] MEDS: METOPROLOL TARTRATE 25 MG TABLET PO SCH ×2 (08:09→21:05)
[2018-03-28] MEDS: AZITHROMYCIN 250 MG TABLET PO SCH (08:09)
[2018-03-28] MEDS: PROPRANOLOL HCL 20 MG TABLET PO SCH (08:09)
[2018-03-28] MEDS: FUROSEMIDE 20 MG TABLET PO SCH (08:09)
[2018-03-28] MEDS: SACCHAROMYCES BOULARDII 250 MG CAPSULE PO SCH ×2 (08:09→21:04)
--- NOTE | 2018-03-28 11:21 | PN ---
Subjective - Date and Time Seen Date: 03/28/18 Time: 10:00 Subjective Narrative: Adelina is feeling quite a bit better this morning. She is sitting up in a chair and notices that she is feeling stronger and is not as short of breath. She is using her flutter device and is coughing up dark brownish mucus. She's had no chest discomfort. She is now on 40% FiO2. We will start weaning her oxygen as her O2 sats allow. Last night, about midnight, she went into atrial f ibrillation with intermittent RVR. A 12-lead EKG was done and shows atrial flutter with RVR and an 11 beat amy of SVT. She has been on propranolol 20 mg twice a day. I added metoprolol 25 mg twice a day and will discontinue the propranolol. This morning she is in atrial fibrillation but with a controlled ventricular response rate and there is no further findings were SVT or RVR. She is now on telemetry as well. The chest x-ray this morning shows alveolar infiltrates bilaterally suggestive of mild pulmonary vascular congestion versus pneumonia. I suspect she has both and probably pneumonia has wants tipped her over into atrial fibrillation and mild congestive failure. Objective - Review of Systems Generalized/Overall Review: Reports: Weakness, Fatigue EENTM: Reports: No Symptoms Reported Respiratory: Reports: Cough, Shortness of Breath Cardiac: Reports: No Symptoms Reported Abdominal: Reports: No Symptoms Reported Genitourinary Symptoms: Reports: No Symptoms Reported Musculoskeletal Complaints: Reports: No Symptoms Reported Neurological: Reports: No Symptoms Reported, Weakness Skin: Reports: No Symptoms Reported Endocrine: Reports: No Symptoms Reported Misc: All systems neg except as marked - Vitals Vitals: Last Vital Signs Temp 36 C 03/28/18 10:00 Pulse 72 03/28/18 10:00 Resp 20 03/28/18 10:00 BP 142/60 03/28/18 10:00 Pulse Ox 94 03/28/18 10:00 - Abnormal Lab Findings Abnormal Lab Findings: Abnormal Lab Results 03/28/18 03/28/18 03/28/18 Range/Units 06:10 06:10 06:58 WBC 35.2 H (4.0-10.5) K/mm3 RBC 3.42 L (4.2-5.4) M/mm3 Hgb 9.7 L (12.5-16.0) gm/dL Hct 29.6 L (37.0-47.0) % Neutrophils % (Manual) 91 H (42-75) % Lymphocytes % (Manual) 6 L (20-51) % Neutrophils # (Manual) 32.0 H (1.3-6.0) K/mm3 Monocytes # (Manual) 1.1 H (0.0-1.0) k/mm3 Percent Retic 2.4 H (0.4-1.8) % Immature Retic Fraction 27.2 H (3.0-15.9) % Sodium 145 H (132-142) mmol/L Plasma Sodium 146 H (130-142) mmol/L Anion Gap 16.7 H (6.8-13.8) mmol/L BUN 62 H (3-23) mg/dL Creatinine 1.54 H (0.4-1.4) mg/dL Est GFR (Non-Af Amer) 34 L (60-130) mL/min BUN/Creatinine Ratio 40.3 H (9.0-21.6) Random Glucose 146 H D (70-110) mg/dL Calcium Adj for Albumin 10.3 H (8.4-10.2) mg/dL AST 59 H (0-48) U/L Albumin 2.2 L (3.4-5.0) gm/dl - EKG/Xray Findings EKG: supravent. tachycardia, atrial fibrillation EKG read: Interp. by me Interpretation: Reviewed by me - Exam Constitutional: Present: Alert, Oriented x3, Cooperative, Well developed, Well nourished, Mild distress ENT Exam: Present: normal ENT inspection, hearing grossly normal, nasal congestion Neck: Present: non-tender, supple, normal inspection, trachea midline, limited range of motion Respiratory: Present: chest non-tender, decreased breath sounds - But better by far than yesterday., crackles, rhonchi, wheezing Cardiovascular/Chest: Present: normal peripheral pulses, irregularly irregular - Rate controlled Abdomen: Present: Normal bowel sounds, soft, nontender, nondistended, no rebound tenderness, no hepatospenomegaly, no masses - Equivocal HJR /Rectal: Present: Exam deferred Extremity: Present: normal range of motion Skin Exam: Present: normal color Lymphatic: Present: no adenopathy Neurologic: Present: machine filler servicer II-XII nml as tested Appearance: Present: appropriate appearance Eye contact: Present: cooperative Thoughts: Present: normal thought pattern, no apparent hallucination Cauti Physician Documentation - Urinary Catheter Management Suprapubic Urethral Indwelling: No Assessment/Plan Plan Narrative: 1. Continue current respiratory therapy. 2. Continue monitoring apart and oxygen saturations 3. Lasix 20 mg IV push 1 dose only 4. Wean from oxygen as able - Problems/Diagnosis (1) Pneumonia Problem: Acute Qualifiers: Pneumonia type: due to unspecified organism Laterality: bilateral Lung location: lower lobe of lung Qualified Code(s): J18.1 - Lobar pneumonia, unspecified organism (2) Renal insufficiency Problem: Acute (3) Hypoxia Problem: Acute (4) Diabetes mellitus Problem: Chronic Qualifiers: Diabetes mellitus type: type 2 Diabetes mellitus retirement insulin use: without certified scrub tech use Diabetes mellitus complication status: with kidney complications Diabetes mellitus complication detail: with chronic kidney disease Chronic kidney disease stage: stage 4 (severe) Qualified Code(s): E11.22 - Type 2 diabetes mellitus with diabetic chronic kidney disease; N18.4 - Chronic kidney disease, stage 4 (severe)
[2018-03-28] MEDS ORDERED: FUROSEMIDE 10 MG/ML VIAL IV ONE (11:30)
[2018-03-28] MEDS: ENOXAPARIN SODIUM 30 MG/0.3 ML SYRG SC SCH (17:25)
[2018-03-28] MEDS: ROSUVASTATIN CALCIUM 10 MG TABLET PO SCH (21:03)
[2018-03-28] MEDS: INSULIN GLARGINE,HUM.REC.ANLOG 100 UNITS/ML VIAL SC SCH (21:11)
[2018-03-29] MEDS: ALBUTEROL SULFATE/IPRATROPIUM 3 ML NEBU IH SCH ×4 (00:30→18:06)
--- NOTE | 2018-03-29 04:28 | PATHPSR ---
PHYSICIAN: Balbir Ojeda MD LAB#: [id number] SPECIMEN DATE: 03/29/2018 CLINICAL INFORMATION: The patient is an 87-year-old type II diabetic woman with chronic renal insufficiency, ulcerative colitis, hyperlipidemia, hypothyroidism and hypertension who was admitted on 03/25/2018 because of increasing shortness of breath and generalized weakness. The clinical diagnosis was a lobar p neumonia and the original WBC count is 30.9 K/mm3. Following 3 days of admission and treatment with antibiotics and breathing treatments on 03/28/2018 the WBC count has elevated to 35.2 K/mm3. Peripheral smear review by pathologist is ordered by Dr. Rocha for this reason. CBC: WBC 35.2 K/mm3, hemoglobin 9.7 gm/dl, hematocrit 29.6 %, MCV is 86.5 fl, MCH is 28.4 pg, MCHC is 32.8 g/dl, Platelet count 321,000/mm. Manual differential: Neutrophils 91 %, bands 0 %, lymphocytes 6 %, monocytes 3 %, eosinophils 0 %, basophils 0 %, atypical reactive lymphocytes 0 %. RED BLOOD CELLS: Normochromic normocytic anemia PLATELETS: No abnormalities WHITE BLOOD CELLS: Leukocytosis with marked neutrophilia DIAGNOSIS: PERIPHERAL BLOOD SMEAR, REVIEW BY PATHOLOGIST: -LEUKOCYTOSIS WITH MARKED RELATIVE NEUTROPHILIA, SEE COMMENT COMMENT: The findings are most consistent with a leukemoid reaction secondary to this patient's known acute infectious process of lobar pneumonia. However, if leukocytosis persists further evaluation to exclude a myeloproliferative disorders indicated including casework supervisor consultation and possible bone marrow evaluation. No immature elements or malignancy is identified on our examination.
[2018-03-29 05:49] LABS: Hematocrit 31.5 % (37.0-47.0); Hemoglobin 10.3 gm/dL (12.5-16.0); Mean Cell Volume 86.5 fl (78-100); Mean Corpuscular Hemoglobin 28.3 pg (27-31); Mean Corpuscular Hgb Conc 32.7 g/dl (32-36); Mean Platelet Volume 9.9 fl (8-12.5); Platelet Count 293 K/mm3 (150-450); Red Blood Count 3.64 M/mm3 (4.2-5.4); Red Cell Distribution Width 13.1 % (11.5-14.0); White Blood Count 26.1 K/mm3 (4.0-10.5)
[2018-03-29 05:57] LABS: Anion Gap 12.2 mmol/L (6.8-13.8); BUN/Creatinine Ratio 35.4 (9.0-21.6); Calcium * 8.9 mg/dL (7.9-10.9); Carbon Dioxide 30.8 mmol/L (24-32.6); Estimated Creat Clear 20.4
[2018-03-29 06:00] LABS: Total Cells Counted 100
[2018-03-29 06:26] LABS: Eosinophil 3 % (0-3); Lymphocyte 11 % (20-51); Monocyte 1 % (0-9); Neutrophil 85 % (42-75); Neutrophil # 22.2 K/mm3 (1.3-6.0); Platelet Estimate Normal (NORMAL); RBC Morphology Normal (NORMAL)
[2018-03-29] MEDS: LEVOTHYROXINE SODIUM 50 MCG TABLET PO SCH (07:48)
[2018-03-29] MEDS: INSULIN LISPRO 100 UNITS/ML VIAL SC SCH ×4 (07:48→21:38)
--- NOTE | 2018-03-29 08:41 | PN ---
Subjective - Date and Time Seen Date: 03/29/18 Time: 08:17 Subjective Narrative: WBC is down to 25. had AFib over the weekend with RVR. back to NSR this morning. Objective - Review of Systems Generalized/Overall Review: Reports: Weakness. Denies: Chills, Fever EENTM: Denies: Blurred Vision Respiratory: Reports: Cough - improvd, Shortness of Breath - improved. Denies: Wheezing Cardiac: Denies: Chest Pain, Edema, Palpitations Abdominal: Denies: Nausea, Vomiting Genitourinary Symptoms: Denies: Urgency, Frequency Musculoskeletal Complaints: Denies: Joint Pain Neurological: Denies: Headache Skin: Denies: Rash, Bruising Endocrine: Denies: Intolerance to Cold, Intolerance to Heat - Vitals Vitals: Last Vital Signs Temp 36.6 C 03/29/18 07:44 Pulse 109 H 03/29/18 07:44 Resp 20 03/29/18 07:44 BP 138/71 03/29/18 07:44 Pulse Ox 92 L 03/29/18 07:44 - Abnormal Lab Findings Abnormal Lab Findings: Abnormal Lab Results 03/28/18 03/29/18 03/29/18 Range/Units Unknown 05:35 05:35 WBC 26.1 H D (4.0-10.5) K/mm3 RBC 3.64 L (4.2-5.4) M/mm3 Hgb 10.3 L (12.5-16.0) gm/dL Hct 31.5 L (37.0-47.0) % Neutrophils % (Manual) 85 H (42-75) % Lymphocytes % (Manual) 11 L (20-51) % Neutrophils # (Manual) 22.2 H (1.3-6.0) K/mm3 Eosinophils # (Manual) 0.8 H (0.0-0.7) k/mm3 Potassium 3.0 L (3.4-4.6) mmol/L BUN 58 H (3-23) mg/dL Creatinine 1.64 H (0.4-1.4) mg/dL Est GFR (Non-Af Amer) 32 L (60-130) mL/min BUN/Creatinine Ratio 35.4 H (9.0-21.6) B-Natriuretic Peptide 9305 H (5-550) pg/mL - Exam Constitutional: Present: Alert, Oriented x3, Cooperative ENT Exam: Present: hearing grossly normal Neck: Present: supple Respiratory: Present: decreased breath sounds, crackles, No wheezing Cardiovascular/Chest: Present: regular rate, rhythm, no JVD, no murmur Abdomen: Present: Normal bowel sounds, soft, nontender, nondistended Extremity: Present: no pedal edema, no calf tenderness Cauti Physician Documentation - Urinary Catheter Management Suprapubic Urethral Indwelling: No Assessment/Plan - Problems/Diagnosis (1) Afib Problem: Acute Qualifiers: Atrial fibrillation type: paroxysmal Qualified Code(s): I48.0 - Paroxysmal atrial fibrillation Narrative: back to NSR. on Metoprolol and will increase to 50 mg PO BID. will start her on Eliquis. will get Echocardiogram. (2) Hypoxia Problem: Acute Narrative: continue with O2 and taper (3) Pneumonia Problem: Acute Qualifiers: Pneumonia type: due to unspecified organism Laterality: bilateral Lung location: lower lobe of lung Qualified Code(s): J18.1 - Lobar pneumonia, unspecified organism Narrative: continue with IV Zosyn and azithromycin. WBC is trending down and clinically feeling better (4) Hypothyroidism Problem: Chronic Qualifiers: Hypothyroidism type: unspecified Qualified Code(s): E03.9 - Hypothyroidism, unspecified Narrative: will check TSH. had Afib yesterday (5) CRF (chronic renal failure) Problem: Chronic Qualifiers: Chronic kidney disease stage: stage 3 (moderate) Qualified Code(s): N18.3 - Chronic kidney disease, stage 3 (moderate) Narrative: improved to Stage III from IV (6) Hypertension Problem: Chronic Qualifiers: Hypertension type: essential hypertension Qualified Code(s): I10 - Essential (primary) hypertension (7) Diabetes mellitus Problem: Chronic Qualifiers: Diabetes mellitus type: type 2 Diabetes mellitus assistant terminal manager insulin use: without shelter use Diabetes mellitus complication status: with kidney complications Diabetes mellitus complication detail: with chronic kidney disease Chronic kidney disease stage: stage 4 (severe) Qualified Code(s): E11.22 - Type 2 diabetes mellitus with diabetic chronic kidney disease; N18.4 - Chronic kidney disease, stage 4 (severe) (8) Choking due to food (regurgitated) Problem: Resolved Qualifiers: Encounter type: initial encounter Qualified Code(s): T17.320A - Food in larynx causing asphyxiation, initial encounter (9) Hypokalemia Problem: Acute Narrative: will supplement. likely due to diuretic. will give her KDur 40 meq PO x 1 and then 20 meq po daily/
[2018-03-29] MEDS ORDERED: POTASSIUM CHLORIDE 20 MEQ TABLET.SA PO ONE (08:42)
[2018-03-29] MEDS: SACCHAROMYCES BOULARDII 250 MG CAPSULE PO SCH ×2 (08:56→21:38)
[2018-03-29] MEDS: PIPERACILLIN SODIUM/TAZOBACTAM 3.375 GM in DEXTROSE 5 % IN WATER 100 ML IV SCH ×4 (08:56→19:43)
[2018-03-29] MEDS: METOPROLOL TARTRATE 25 MG TABLET PO SCH (08:57)
[2018-03-29] MEDS: AZITHROMYCIN 250 MG TABLET PO SCH (08:57)
[2018-03-29] MEDS: FUROSEMIDE 20 MG TABLET PO SCH (08:57)
[2018-03-29 09:02] LABS: T4 Free * 1.62 ng/dL (0.76-1.46); TSH * 1.413 uIU/mL (0.358-3.74)
[2018-03-29] MEDS: APIXABAN 2.5 MG TABLET PO SCH ×2 (09:02→21:38)
[2018-03-29] MEDS ORDERED: METOPROLOL TARTRATE 25 MG TABLET PO ONE (09:58)
[2018-03-29] MEDS: ALBUTEROL SULFATE 2.5 MG/0.5 ML VIAL.NEB IH PRN (13:07)
[2018-03-29] MEDS: ACETAMINOPHEN 325 MG TABLET PO PRN ×2 (14:42→21:55)
[2018-03-29] MEDS: METOPROLOL TARTRATE 50 MG TABLET PO SCH (21:39)
[2018-03-29] MEDS: INSULIN GLARGINE,HUM.REC.ANLOG 100 UNITS/ML VIAL SC SCH (21:39)
[2018-03-29] MEDS: ROSUVASTATIN CALCIUM 10 MG TABLET PO SCH (21:43)
[2018-03-30] MEDS: ALBUTEROL SULFATE/IPRATROPIUM 3 ML NEBU IH SCH ×4 (00:07→18:00)
[2018-03-30] MEDS: ACETAMINOPHEN 325 MG TABLET PO PRN ×3 (06:48→20:05)
[2018-03-30] MEDS: LEVOTHYROXINE SODIUM 50 MCG TABLET PO SCH (06:48)
[2018-03-30] MEDS: INSULIN LISPRO 100 UNITS/ML VIAL SC SCH ×4 (06:56→20:09)
[2018-03-30 07:48] LABS: Hematocrit 32.3 % (37.0-47.0); Hemoglobin 10.5 gm/dL (12.5-16.0); Mean Cell Volume 87.5 fl (78-100); Mean Corpuscular Hemoglobin 28.5 pg (27-31); Mean Corpuscular Hgb Conc 32.5 g/dl (32-36); Mean Platelet Volume 10.1 fl (8-12.5); Platelet Count 285 K/mm3 (150-450); Red Blood Count 3.69 M/mm3 (4.2-5.4); Red Cell Distribution Width 13.2 % (11.5-14.0)
[2018-03-30] MEDS: PIPERACILLIN SODIUM/TAZOBACTAM 3.375 GM in DEXTROSE 5 % IN WATER 100 ML IV SCH ×4 (07:50→20:02)
[2018-03-30 08:09] LABS: Anion Gap 13.1 mmol/L (6.8-13.8); BUN/Creatinine Ratio 35.1 (9.0-21.6); Carbon Dioxide 30.1 mmol/L (24-32.6); Estimated Creat Clear 19.5; Potassium 3.2 mmol/L (3.4-4.6)
[2018-03-30 08:25] LABS: Total Cells Counted 100
[2018-03-30 08:27] LABS: Dohle Bodies Trace; Eosinophil 2 % (0-3); Lymphocyte 9 % (20-51); Neutrophil 89 % (42-75); Platelet Estimate Normal (NORMAL)
[2018-03-30] MEDS ORDERED: POTASSIUM CHLORIDE 20 MEQ TABLET.SA PO ONE (08:45)
[2018-03-30] MEDS ORDERED: POTASSIUM CHLORIDE 10 MEQ TABLET.SA PO SCH (09:00)
[2018-03-30] MEDS: LOSARTAN POTASSIUM 50 MG TABLET PO SCH (09:22)
[2018-03-30] MEDS: FUROSEMIDE 40 MG TABLET PO SCH (09:24)
[2018-03-30] MEDS: APIXABAN 2.5 MG TABLET PO SCH ×2 (09:24→20:04)
[2018-03-30] MEDS: METOPROLOL TARTRATE 50 MG TABLET PO SCH ×2 (09:24→20:28)
[2018-03-30] MEDS: SACCHAROMYCES BOULARDII 250 MG CAPSULE PO SCH ×2 (09:25→20:04)
--- NOTE | 2018-03-30 09:43 | PN ---
Subjective - Date and Time Seen Date: 03/30/18 Time: 09:37 Subjective Narrative: Patient clinically feels better. afebrile. still needing O2. Tele shows in and out of AFib. Echos shows, EF 45-50%, diastolic dysfunction, PHTN. Objective - Review of Systems Generalized/Overall Review: Reports: Weakness. Denies: Chills, Fever EENTM: Denies: Blurred Vision Respiratory: Reports: Shortness of Breath. Denies: Cough, Wheezing Cardiac: Denies: Chest Pain, Edema, Palpitations Abdominal: Denies: Nausea, Vomiting Genitourinary Symptoms: Denies: Urgency, Frequency Musculoskeletal Complaints: Denies: Joint Pain Neurological: Denies: Headache Skin: Denies: Rash, Bruising Endocrine: Denies: Intolerance to Cold, Intolerance to Heat - Vitals Vitals: Last Vital Signs Temp 36.0 C 03/30/18 06:59 Pulse 88 03/30/18 09:24 Resp 20 03/30/18 06:59 BP 137/54 03/30/18 09:24 Pulse Ox 92 L 03/30/18 06:59 - Abnormal Lab Findings Abnormal Lab Findings: Abnormal Lab Results 03/30/18 03/30/18 Range/Units 07:30 07:40 WBC 27.0 H (4.0-10.5) K/mm3 RBC 3.69 L (4.2-5.4) M/mm3 Hgb 10.5 L (12.5-16.0) gm/dL Hct 32.3 L (37.0-47.0) % Neutrophils % (Manual) 89 H (42-75) % Lymphocytes % (Manual) 9 L (20-51) % Neutrophils # (Manual) 24.0 H (1.3-6.0) K/mm3 Plasma Sodium 143 H (130-142) mmol/L Potassium 3.2 L (3.4-4.6) mmol/L BUN 60 H (3-23) mg/dL Creatinine 1.71 H (0.4-1.4) mg/dL Est GFR (Non-Af Amer) 30 L (60-130) mL/min BUN/Creatinine Ratio 35.1 H (9.0-21.6) Random Glucose 187 H D (70-110) mg/dL B-Natriuretic Peptide 1958 H (5-550) pg/mL - Exam Constitutional: Present: Alert, Oriented x3, Cooperative, Elderly ENT Exam: Present: hearing grossly normal Neck: Present: supple Respiratory: Present: decreased breath sounds, rales, No wheezing Cardiovascular/Chest: Present: regular rate, rhythm, no JVD, systolic murmur Abdomen: Present: Normal bowel sounds, soft, nontender, nondistended Extremity: Present: no pedal edema, pedal edema Cauti Physician Documentation - Urinary Catheter Management Suprapubic Urethral Indwelling: No Assessment/Plan - Problems/Diagnosis (1) Afib Problem: Acute Qualifiers: Atrial fibrillation type: unspecified Qualified Code(s): I48.91 - Unspe cified atrial fibrillation Narrative: intermittent. on BBlocker for rate control and on eliquis. consider amiodarone . (2) Hypoxia Problem: Acute Narrative: due to pneumonia, multifocal and CHF. (3) CHF (congestive heart failure) Problem: Acute Qualifiers: Heart failure type: combined systolic and diastolic Heart failure chronicity: acute Qualified Code(s): I50.41 - Acute combined systolic (congestive) and diastolic (congestive) heart failure Narrative: will increase her Lasix to 40 mg PO qdaily. continue with BBlocker and Losartan. (4) Pneumonia Problem: Acute Qualifiers: Pneumonia type: due to unspecified organism Laterality: bilateral Lung location: lower lobe of lung Qualified Code(s): J18.1 - Lobar pneumonia, unspecified organism Narrative: day # 4 of Zosyn, day 35 azithromycin. WBC 27 from 26 but down from 41. (5) Hypothyroidism Problem: Chronic Qualifiers: Hypothyroidism type: unspecified Qualified Code(s): E03.9 - Hypothyroidism, unspecified Narrative: FT4 is elevated but TSH is normal. consider reducing her levothyroxine- is contributing to her AFib? (6) CRF (chronic renal failure) Problem: Chronic Qualifiers: Chronic kidney disease stage: stage 3 (moderate) Qualified Code(s): N18.3 - Chronic kidney disease, stage 3 (moderate) (7) Hypertension Problem: Chronic Qualifiers: Hypertension type: essential hypertension Qualified Code(s): I10 - Essential (primary) hypertension (8) Diabetes mellitus Problem: Chronic Qualifiers: Diabetes mellitus type: type 2 Diabetes mellitus retirement insulin use: without sign manufacturer use Diabetes mellitus complication status: with kidney complications Diabetes mellitus complication detail: with chronic kidney disease Chronic kidney disease stage: stage 4 (severe) Qualified Code(s): E11.22 - Type 2 diabetes mellitus with diabetic chronic kidney disease; N18.4 - Chronic kidney disease, stage 4 (severe) (9) Choking due to food (regurgitated) Problem: Resolved Qualifiers: Encounter type: initial encounter Qualified Code(s): T17.320A - Food in larynx causing asphyxiation, initial encounter (10) Hypokalemia Problem: Acute Narrative: improved to 3.2 (11) Pulmonary hypertension Problem: Acute Narrative: likely due to pneumonia/chf. unlikely due to P.E. - has been anticoagualted.
[2018-03-30] MEDS: INSULIN GLARGINE,HUM.REC.ANLOG 100 UNITS/ML VIAL SC SCH (20:10)
[2018-03-30] MEDS: ROSUVASTATIN CALCIUM 10 MG TABLET PO SCH (20:12)
[2018-03-31] MEDS: ALBUTEROL SULFATE/IPRATROPIUM 3 ML NEBU IH SCH ×4 (00:03→19:37)
[2018-03-31] MEDS: ACETAMINOPHEN 325 MG TABLET PO PRN ×3 (04:11→19:59)
[2018-03-31 05:10] LABS: Hematocrit 32.2 % (37.0-47.0); Hemoglobin 10.2 gm/dL (12.5-16.0); Mean Cell Volume 88.7 fl (78-100); Mean Corpuscular Hemoglobin 28.1 pg (27-31); Mean Corpuscular Hgb Conc 31.7 g/dl (32-36); Mean Platelet Volume 10.2 fl (8-12.5); Platelet Count 267 K/mm3 (150-450); Red Blood Count 3.63 M/mm3 (4.2-5.4); Red Cell Distribution Width 13.4 % (11.5-14.0); White Blood Count 26.8 K/mm3 (4.0-10.5)
[2018-03-31 05:28] LABS: Anion Gap 12.7 mmol/L (6.8-13.8); BUN/Creatinine Ratio 33.7 (9.0-21.6); Calcium * 9.2 mg/dL (7.9-10.9); Carbon Dioxide 30.3 mmol/L (24-32.6); Estimated Creat Clear 20.5; Total Cells Counted 100
[2018-03-31 05:30] LABS: Eosinophil 2 % (0-3); Immature Granulocyte 2 (0-1); Lymphocyte 9 % (20-51); Neutrophil 87 % (42-75); Neutrophil # 23.3 K/mm3 (1.3-6.0)
[2018-03-31 05:31] LABS: Platelet Estimate Normal (NORMAL)
[2018-03-31] MEDS: LEVOTHYROXINE SODIUM 50 MCG TABLET PO SCH (07:24)
[2018-03-31] MEDS: INSULIN LISPRO 100 UNITS/ML VIAL SC SCH ×4 (07:32→20:02)
--- NOTE | 2018-03-31 07:48 | ECHO ---
This report is available in the EMR
--- NOTE | 2018-03-31 08:04 | PN ---
Subjective - Date and Time Seen Date: 03/31/18 Time: 07:58 Subjective Narrative: afebrile. Tmax 36.5. WBC is staying in the 20's. she says she is feeling a little bit better than yesterday clinically. Objective - Review of Systems Generalized/Overall Review: Denies: Chills, Fever EENTM: Denies: Blurred Vision Respiratory: Reports: Cough, Shortness of Breath Cardiac: Denies: Chest Pain, Edema, Palpitations Abdominal: Denies: Nausea, Vomiting Genitourinary Symptoms: Denies: Urgency, Frequency Musculoskeletal Complaints: Denies: Joint Pain Neurological: Denies: Headache Skin: Denies: Rash, Bruising Endocrine: Denies: Intolerance to Cold, Intolerance to Heat - Vitals Vitals: Last Vital Signs Temp 36.5 C 03/31/18 07:39 Pulse 100 03/31/18 07:39 Resp 24 H 03/31/18 07:39 BP 130/61 03/31/18 07:39 Pulse Ox 92 L 03/31/18 07:39 - Abnormal Lab Findings Abnormal Lab Findings: Abnormal Lab Results 03/30/18 03/30/18 03/31/18 Range/Units 07:30 07:40 05:05 WBC 27.0 H 26.8 H (4.0-10.5) K/mm3 RBC 3.69 L 3.63 L (4.2-5.4) M/mm3 Hgb 10.5 L 10.2 L (12.5-16.0) gm/dL Hct 32.3 L 32.2 L (37.0-47.0) % MCHC 31.7 L (32-36) g/dl Neutrophils % (Manual) 89 H 87 H (42-75) % Lymphocytes % (Manual) 9 L 9 L (20-51) % Immature Granulocytes 2 H (0-1) Neutrophils # (Manual) 24.0 H 23.3 H (1.3-6.0) K/mm3 Plasma Sodium 143 H (130-142) mmol/L Potassium 3.2 L (3.4-4.6) mmol/L BUN 60 H (3-23) mg/dL Creatinine 1.71 H (0.4-1.4) mg/dL Est GFR (Non-Af Amer) 30 L (60-130) mL/min BUN/Creatinine Ratio 35.1 H (9.0-21.6) Random Glucose 187 H D (70-110) mg/dL B-Natriuretic Peptide 1958 H (5-550) pg/mL 03/31/18 Range/Units 05:05 WBC (4.0-10.5) K/mm3 RBC (4.2-5.4) M/mm3 Hgb (12.5-16.0) gm/dL Hct (37.0-47.0) % MCHC (32-36) g/dl Neutrophils % (Manual) (42-75) % Lymphocytes % (Manual) (20-51) % Immature Granulocytes (0-1) Neutrophils # (Manual) (1.3-6.0) K/mm3 Plasma Sodium (130-142) mmol/L Potassium (3.4-4.6) mmol/L BUN 55 H (3-23) mg/dL Creatinine 1.63 H (0.4-1.4) mg/dL Est GFR (Non-Af Amer) 32 L (60-130) mL/min BUN/Creatinine Ratio 33.7 H (9.0-21.6) Random Glucose 131 H (70-110) mg/dL B-Natriuretic Peptide (5-550) pg/mL - Exam Constitutional: Present: Alert, Oriented x3, Cooperative, Elderly ENT Exam: Present: hearing grossly normal Neck: Present: supple Respiratory: Present: decreased breath sounds, crackles - occasional, No wheezing Cardiovascular/Chest: Present: regular rate, rhythm, no JVD, systolic murmur Abdomen: Present: Normal bowel sounds, soft, nontender, nondistended Extremity: Present: no pedal edema, no calf tenderness Cauti Physician Documentation - Urinary Catheter Management Suprapubic Urethral Indwelling: No Assessment/Plan - Problems/Diagnosis (1) Afib Problem: Acute Qualifiers: Atrial fibrillation type: unspecified Qualified Code(s): I48.91 - Unspecified atrial fibrillation Narrative: intermittent (2) Hypoxia Problem: Acute Narrative: combined due to CHF/PHTN and pneumonia. BNP has improved to 1957 from 9000= but WBC has remianed stagnant at 25,000+ (3) CHF (congestive heart failure) Problem: Acute Qualifiers: Heart failure type: combined systolic and diastolic Heart failure chronicity: acute Qualified Code(s): I50.41 - Acute combined systolic (congestive) and diastolic (congestive) heart failure Narrative: BNP improved. Cr improved. Continue with increased dose of diuretic, ARB, BBlocker,. consider adding Spironolactone if kidney function improves further (4) Pneumonia Problem: Acute Qualifiers: Pneumonia type: due to unspecified organism Laterality: bilateral Lung location: lower lobe of lung Qualified Code(s): J18.1 - Lobar pneumonia, unspecified organism Narrative: day # 5 of IV Zosyn and azithromycin. WBC is stagnant. will talk with I.Bettye in [facility] . will repeat septic work up- CXR,sputum C & S, UCS, BC. consider adding Vancomycin or antifungal. will likely do CTS of the chest. ADDENDUM: Discussed case with Dr. Renate Overton, [facility]- agree with CTS of the chest and if negative for parapneumonic pleural effusions, recommend bronchospy. If still with persist ne leukocytosis , recommedn linezolid 600 mg PO BID ( is she is not on SSRI) instead of vanco. (5) Pulmonary hypertension Problem: Acute (6) Hypothyroidism Problem: Chronic Qualifiers: Hypothyroidism type: unspecified Qualified Code(s): E03.9 - Hypothyroidism, unspecified (7) CRF (chronic renal failure) Problem: Chronic Qualifiers: Chronic kidney disease stage: stage 3 (moderate) Qualified Code(s): N18.3 - Chronic kidney disease, stage 3 (moderate) (8) Hypertension Problem: Chronic Qualifiers: Hypertension type: essential hypertension Qualified Code(s): I10 - Essential (primary) hypertension (9) Diabetes mellitus Problem: Chronic Qualifiers: Diabetes mellitus type: type 2 Diabetes mellitus half-way insulin use: without half-way use Diabetes mellitus complication status: with kidney complications Diabetes mellitus complication detail: with chronic kidney disease Chronic kidney disease stage: stage 4 (severe) Qualified Code(s): E11.22 - Type 2 diabetes mellitus with diabetic chronic kidney disease; N18.4 - Chronic kidney disease, stage 4 (severe) (10) Choking due to food (regurgitated) Problem: Resolved Qualifiers: Encounter type: initial encounter Qualified Code(s): T17.320A - Food in larynx causing asphyxiation, initial encounter Narrative: ST house worker ruled out silent aspiration (11) Hypokalemia Problem: Resolved
[2018-03-31] MEDS: PIPERACILLIN SODIUM/TAZOBACTAM 3.375 GM in DEXTROSE 5 % IN WATER 100 ML IV SCH ×4 (08:11→19:52)
[2018-03-31] MEDS: SACCHAROMYCES BOULARDII 250 MG CAPSULE PO SCH ×2 (09:41→20:06)
[2018-03-31] MEDS: APIXABAN 2.5 MG TABLET PO SCH ×2 (09:43→20:05)
[2018-03-31] MEDS: LOSARTAN POTASSIUM 50 MG TABLET PO SCH (09:43)
[2018-03-31] MEDS: FUROSEMIDE 40 MG TABLET PO SCH (09:44)
[2018-03-31] MEDS: POTASSIUM CHLORIDE 20 MEQ TABLET.SA PO SCH (09:44)
[2018-03-31] MEDS: METOPROLOL TARTRATE 50 MG TABLET PO SCH (09:44)
[2018-03-31] MEDS ORDERED: FUROSEMIDE 10 MG/ML VIAL IV ONE (11:30)
[2018-03-31] MEDS ORDERED: FUROSEMIDE 10 MG/ML VIAL ONE (12:44)
[2018-03-31 14:38] LABS: Urine Bilirubin Negative (NEGATIVE); Urine Blood Negative /ul (NEGATIVE); Urine Ketone Negative (NEGATIVE); Urine Nitrite Negative (NEGATIVE); Urine Protein Negative (NEGATIVE); Urine Specific Gravity 1.015 SP.GR. (1.005-1.010); Urine Urobilinogen Normal (NORMAL)
[2018-03-31 14:48] LABS: Urine Appearance Clear (CLEAR); Urine Color Pale Yellow
[2018-03-31 14:49] LABS: Urine Bacteria 1+; Urine Hyaline Cast 0-5 /LPF; Urine RBC None Seen /hpf (0-5); Urine Renal Epithelial Cell Few - 1+ /hpf; Urine WBC 0-5 /hpf (0-5)
[2018-03-31] MEDS: INSULIN GLARGINE,HUM.REC.ANLOG 100 UNITS/ML VIAL SC SCH (20:02)
[2018-03-31] MEDS: ROSUVASTATIN CALCIUM 10 MG TABLET PO SCH (20:05)
[2018-03-31] MEDS: METOPROLOL TARTRATE 25 MG TABLET PO SCH (20:06)
[2018-04-01] MEDS: ALBUTEROL SULFATE/IPRATROPIUM 3 ML NEBU IH SCH ×3 (00:14→06:15)
[2018-04-01] MEDS: ALBUTEROL SULFATE 2.5 MG/0.5 ML VIAL.NEB IH PRN (04:13)
[2018-04-01 05:17] LABS: Hematocrit 31.6 % (37.0-47.0); Hemoglobin 10.1 gm/dL (12.5-16.0); Mean Cell Volume 88.5 fl (78-100); Mean Corpuscular Hemoglobin 28.3 pg (27-31); Mean Platelet Volume 10.5 fl (8-12.5); Platelet Count 274 K/mm3 (150-450); Red Blood Count 3.57 M/mm3 (4.2-5.4); Red Cell Distribution Width 13.6 % (11.5-14.0); White Blood Count 25.6 K/mm3 (4.0-10.5)
[2018-04-01 05:21] LABS: Total Cells Counted 100
[2018-04-01 05:24] LABS: Anion Gap 11.7 mmol/L (6.8-13.8); BUN/Creatinine Ratio 30.6 (9.0-21.6); Calcium * 9.1 mg/dL (7.9-10.9); Carbon Dioxide 31.4 mmol/L (24-32.6); Estimated Creat Clear 18.6; Potassium 4.1 mmol/L (3.4-4.6)
[2018-04-01 05:50] LABS: Eosinophil 2 % (0-3); Immature Granulocyte 1 (0-1); Lymphocyte 7 % (20-51); Neutrophil 90 % (42-75); Platelet Estimate Normal (NORMAL); RBC Morphology Normal (NORMAL)
[2018-04-01] MEDS: LEVOTHYROXINE SODIUM 50 MCG TABLET PO SCH (07:19)
[2018-04-01] MEDS: INSULIN LISPRO 100 UNITS/ML VIAL SC SCH (07:37)
--- NOTE | 2018-04-01 08:26 | DS ---
Transfer Discharge Summary - Diagnosis(s)/Problems (1) Leukocytosis Narrative: persistent, still likely infectious. Problem: Acute (2) Hypoxia Narrative: multifactorial- pneumonia/CHF/PHTN Problem: Acute (3) Pneumonia Narrative: multifocal Problem: Acute (4) Afib Narrative: intermittent Problem: Acute (5) CHF (congestive heart failure) Narrative: combined systolic/diastolic. decreased EF though could be due to her intermittent AFib Problem: Acute (6) Pulmonary hypertension Narrative: due to pneumonia/CHF Problem: Acute (7) Hypothyroidism Problem: Chronic (8) CRF (chronic renal failure) Narrative: Stage III-IV Problem: Chronic (9) Hypertension Problem: Chronic (10) Diabetes mellitus Problem: Chronic (11) Choking due to food (regurgitated) Problem: Resolved - Course Description of Stay: Adelina Lanier, is an 87-year-old white female, with past medical history of diabetes mellitus type 2, ulcerative colitis, hyperlipidemia, hypothyroidism, hypertension, who was admitted on 03/25/2018 because of increasing shortness of breath and generalized weakness. The patient started having cough with on and off production of phlegm since 5 days prior to admission. She started getting generalized weakness associated with nausea and diarrhea and so she went to the walk-in clinic in [facility] where she was started on antibiotics and given breathing treatments and nebs and sent home. In our emergency room she was found to be hypoxic (75% on RA), tachypneic (RR 24). She was also found to have an elevated white blood cell count of 30,000+, and a chest x-ray which showed b/l pneumonia vs pulmonary congestion congestion versus ARDS, Cr of 1.7 with a GFR 29. The patient was then admitted for further treatment. She was started on IV Levaquin and Azithromycin, breathing treatments and IV solumedrol. She was also noticed to be choking on her food by nursing personnel. Her WBC bumped up to the 40,000 and her antibiotic was changed to IV Zosyn and continued on Azithromycin. Peripheral smear sent to pathology showed leukemoid reaction to infection. ST consult was done for evaluation treatment and silent aspiration was ruled out. She went into intermittent Atrial Fibrillation and she was started on BBlocker and eliquis, continued or her ARB. Her Echo showed combined systolic and diastolic dysfunction with PHTN RVSP 63. Her diuretic was increased. Her kidney function remained in Stage III-IV. Her BNP went down form 9000+ to 1900+. [place] [address]+ on the 3rd day of IV zosyn but has remained there. She remained hypoxic. She was on CPAP and now is back to [place]. Her CTS showed. - 1. Basilar predominant bilateral interlobular septal thickening, with associated bronchiectasis suggestive of potential underlying pulmonary fibrosis. 2. Diffuse groundglass opacities intermixed with the fibrotic changes of the gui ngs. Consider multifocal infection, pulmonary edema, versus alveolitis related to acute inflammation related to interstitial lung disease. Less likely to represent neoplastic process but follow-up is recommended to document resolution. 3. Trace left-sided pleural fluid, and trace fluid along the major fissures. 4. Thoracic aortic and coronary arterial atherosclerotic disease. 5. Consider pulmonology consultation. 6. Recommend follow-up chest CT in 3-6 months to document resolution of the groundglass opacities. I talked to Brooklynn Parker , and she recommended bronchospy and Linezolid. We do not have the medication in our hospital and the services of pulmonology , cardiology and infectious disease. We will transfer the patient to [facility] and the patient and family is agreeable to the plan. Her ABG shwed a pH 7.47/38.4/56/27.4/91%. I was able to to talked to Dr. Heredia and he is accepting the patient. Procedures Performed: none - Results and Findings Results and Findings: Laboratory Results - last 24 hr 03/31/18 04/01/18 04/01/18 14:30 05:00 05:00 WBC 25.6 H RBC 3.57 L Hgb 10.1 L Hct 31.6 L MCV 88.5 MCH 28.3 MCHC 32.0 RDW 13.6 Plt Count 274 MPV 10.5 Neutrophils % (Manual) 90 H Lymphocytes % (Manual) 7 L Eosinophils % (Manual) 2 Immature Granulocytes 1 Neutrophils # (Manual) 23.0 H Lymphocytes # (Manual) 1.8 Eosinophils # (Manual) 0.5 Nucleated RBCs 1.0 Platelet Estimate Normal RBC Morphology Normal Sodium 139 Plasma Sodium 140 Potassium 4.1 Chloride 100 Carbon Dioxide 31.4 Anion Gap 11.7 BUN 55 H Creatinine 1.80 H Est GFR (Non-Af Amer) 28 L BUN/Creatinine Ratio 30.6 H Random Glucose 181 H D Calcium 9.1 Urine Color Pale yellow Urine Appearance Clear Urine pH 6.0 Ur Specific [place] 1.015 Urine Protein Negative Urine Glucose (UA) Negative Urine Ketones Negative Urine Blood Negative Urine Nitrate Negative Urine Bilirubin Negative Urine Urobilinogen Normal Ur Leukocyte Esterase 75 H Urine RBC None seen Urine WBC 0-5 Ur Epithelial Cells 5-10 H Ur Renal Epithelial Cell Few - 1+ H Urine Bacteria 1+ H Hyaline Casts 0-5 H Urine Culture Comments Culture to follow - Medications Medications: Active Medications Acetaminophen (Tylenol) 650 mg PO Q4H PRN PRN Reason: Mild pain (pain scale 1-3) Stop: 04/24/18 13:27 Last Admin: 03/31/18 19:59 Dose: 650 mg Documented by: Albuterol Sulfate (Albuterol Sulfate 2.5 Mg/0.5ml) 2.5 mg IH Q4H PRN PRN Reason: Shortness Of Breath Stop: 04/24/18 13:35 Last Admin: 04/01/18 04:13 Dose: 2.5 mg Documented by: Albuterol/Ipratropium (Duoneb 2.5-0.5mg/3ml Soln) 3 ml IH Q6HRT [facility] Stop: 04/24/18 19:01 Last Admin: 04/01/18 06:15 Dose: Not Given Documented by: Apixaban (Eliquis) 2.5 mg PO BID [facility] Stop: 04/28/18 09:01 Last Admin: 03/31/18 20:05 Dose: 2.5 mg Documented by: Benzonatate (Tessalon) 100 mg PO TID PRN PRN Reason: Cough Stop: 04/24/18 16:00 Last Admin: 03/26/18 01:37 Dose: 100 mg Documented by: Furosemide (Lasix) 40 mg PO DAILY [facility] Stop: 04/29/18 09:01 Last Admin: 03/31/18 09:44 Dose: 40 mg Documented by: Piperacillin Sod/Tazobactam (Sod 3.375 gm/ Dextrose/Water) 100 mls @ 25 mls/hr IV Q12H [facility]; Protocol Stop: 04/25/18 08:01 Last Infusion: 03/31/18 23:52 Dose: Infused Documented by: Insulin Glargine (Lantus) 10 units SC [facility] Stop: 04/25/18 21:01 Last Admin: 03/31/18 20:02 Dose: 10 units Documented by: Insulin Human Lispro (Humalog) [facility]; Protocol Stop: 04/24/18 17:01 Last Admin: 04/01/18 07:37 Dose: 8 units Documented by: Levothyroxine Sodium (Synthroid) 50 mcg PO DAILY@0700 [facility] Stop: 04/25/18 07:01 Last Admin: 04/01/18 07:19 Dose: 50 mcg Documented by: Losartan Potassium (Cozaar) 50 mg PO DAILY [facility] Stop: 04/29/18 09:31 Last Admin: 03/31/18 09:43 Dose: 50 mg Documented by: Metoprolol Tartrate (Lopressor) 75 mg PO BID [facility] Stop: 04/30/18 21:01 Last Admin: 03/31/18 20:06 Dose: 75 mg Documented by: Potassium Chloride (K-Dur) 20 meq PO DAILY [facility] Stop: 04/30/18 09:01 Last Admin: 03/31/18 09:44 Dose: 20 meq Documented by: Rosuvastatin Calcium (Crestor) 2.5 mg PO [facility] Stop: 04/25/18 21:01 Last Admin: 03/31/18 20:05 Dose: 2.5 mg Documented by: Saccharomyces Boulardii (Florastor) 250 mg PO BID [facility] Stop: 04/25/18 09:01 Last Admin: 03/31/18 20:06 Dose: 250 mg Documented by: Discontinued Medications Albuterol/Ipratropium (Duoneb 2.5-0.5mg/3ml Soln) 3 ml IH ONCE ONE Stop: 03/25/18 11:52 Last Admin: 03/25/18 12:04 Dose: 3 ml Documented by: Azithromycin (Zithromax) 500 mg PO ONCE ONE; Protocol Stop: 03/25/18 13:16 Last Admin: 03/25/18 13:33 Dose: 500 mg Documented by: Azithromycin (Zithromax) 250 mg PO DAILY [facility]; Protocol Stop: 03/29/18 09:01 Last Admin: 03/29/18 08:57 Dose: 250 mg Documented by: Enoxaparin Sodium (Lovenox) 30 mg SC Q24H [facility] Stop: 04/24/18 17:01 Last Admin: 03/28/18 17:25 Dose: 30 mg Documented by: Furosemide (Lasix) 20 mg PO DAILY [facility] Stop: 04/25/18 09:01 Last Admin: 03/29/18 08:57 Dose: 20 mg Documented by: Furosemide (Lasix) 20 mg IV ONCE ONE Stop: 03/26/18 08:01 Last Admin: 03/26/18 08:20 Dose: 20 mg Documented by: Furosemide (Lasix) 40 mg IV ONCE ONE Stop: 03/28/18 11:31 Last Admin: 03/28/18 11:42 Dose: 40 mg Documented by: Furosemide (Lasix) 40 mg IV ONCE ONE Stop: 03/31/18 11:31 Last Admin: 03/31/18 12:47 Dose: 40 mg Documented by: Ceftriaxone Sodium (Rocephin 1000 Mg Er Piggyback) 1,000 mg in 100 mls @ 200 mls/hr IV ONCE ONE Stop: 03/25/18 12:49 Last Infusion: 03/25/18 12:56 Dose: Infused Documented by: Sodium Chloride (Sodium Chloride 0.9%) 500 mls @ 999 mls/hr IV .Q31M ONE Stop: 03/25/18 12:54 Last Infusion: 03/25/18 13:03 Dose: Infused Documented by: Sodium Chloride (Sodium Chloride 0.9%) 1,000 mls @ 80 mls/hr IV .[id number] PRN PRN Reason: HYDRATION Stop: 04/24/18 13:27 Last Infusion: 03/26/18 07:48 Dose: 0 mls/hr Documented by: Insulin Human Lispro (Humalog) 20 units SC ONCE ONE Stop: 03/27/18 14:01 Last Admin: 03/27/18 14:23 Dose: 20 units Documented by: Methylprednisolone Sodium Succinate (Solu-Medrol (Pf)) 125 mg IV ONCE ONE Stop: 03/25/18 11:52 Last Admin: 03/25/18 12:25 Dose: 125 mg Documented by: Methylprednisolone Sodium Succinate (Solu-Medrol) 40 mg IV Q6H [facility] Stop: 04/24/18 18:01 Last Admin: 03/27/18 05:41 Dose: 40 mg Documented by: Metoprolol Tartrate (Lopressor) 25 mg PO BID [facility] Stop: 04/26/18 23:01 Last Admin: 03/29/18 08:57 Dose: 25 mg Documented by: Metoprolol Tartrate (Lopressor) 25 mg PO NOW ONE Stop: 03/29/18 09:59 Last Admin: 03/29/18 10:40 Dose: 25 mg Documented by: Metoprolol Tartrate (Lopressor) 50 mg PO BID [facility] Stop: 04/28/18 21:01 Last Admin: 03/31/18 09:44 Dose: 50 mg Documented by: Potassium Chloride (K-Dur) 40 meq PO ONCE ONE Stop: 03/29/18 08:43 Last Admin: 03/29/18 09:01 Dose: 40 meq Documented by: Potassium Chloride (Klor-Con 10) 10 meq PO DAILY [facility] Stop: 04/29/18 09:01 Last Admin: 03/30/18 09:29 Dose: Not Given Documented by: Potassium Chloride (K-Dur) 40 meq PO ONCE ONE Stop: 03/30/18 08:46 Last Admin: 03/30/18 09:28 Dose: 40 meq Documented by: Propranolol HCl (Inderal) 20 mg PO DAILY [facility] Stop: 04/25/18 09:01 Last Admin: 03/28/18 08:09 Dose: 20 mg Documented by: - Disposition Disposition: Short Term Hospital Inpatient Condition: Fair Discharge Date: 04/01/18
[2018-04-01] MEDS: PIPERACILLIN SODIUM/TAZOBACTAM 3.375 GM in DEXTROSE 5 % IN WATER 100 ML IV SCH ×2 (08:51)
[2018-04-01] MEDS: LOSARTAN POTASSIUM 50 MG TABLET PO SCH (09:46)
[2018-04-01] MEDS: APIXABAN 2.5 MG TABLET PO SCH (09:46)
[2018-04-01] MEDS: POTASSIUM CHLORIDE 20 MEQ TABLET.SA PO SCH (09:47)
[2018-04-01] MEDS: METOPROLOL TARTRATE 25 MG TABLET PO SCH (09:47)
[2018-04-01] MEDS: FUROSEMIDE 40 MG TABLET PO SCH (09:47)
[2018-04-01] MEDS: SACCHAROMYCES BOULARDII 250 MG CAPSULE PO SCH (09:47)
[2018-04-01 12:15] VITALS: BP 96/68
== END 2018-04-01 12:05 | disposition short-term general hospital (02) | DRG 193 ==
LOC: ER 11:23 → MS 13:20
PROVIDERS: ADMIT Internal Medicine; ATTEND Internal Medicine
DX: E87.6 Hypokalemia; E03.9 Hypothyroidism, unspecified; I50.9 Heart failure, unspecified; I27.22 Pulmonary hypertension due to left heart disease; E11.22 Type 2 diabetes mellitus with diabetic chronic kidney disease; Z79.84 Long term (current) use of oral hypoglycemic drugs; D72.829 Elevated white blood cell count, unspecified; R09.02 Hypoxemia; J18.1 Lobar pneumonia, unspecified organism; N18.4 Chronic kidney disease, stage 4 (severe); T17.310A Gastric contents in larynx causing asphyxiation, initial encounter; I50.43 Acute on chronic combined systolic (congestive) and diastolic (congestive) heart failure; I12.9 Hypertensive chronic kidney disease with stage 1 through stage 4 chronic kidney disease, or unspecified chronic kidney disease
CPT/HCPCS: 36415; 36600; 71010; 71020; 71045; 71046; 71250; 74230; 80048; 80053; 81001; 82436; 82803; 83519; 83605; 83880; 84133; 84145; 84300; 84439; 84443; 84484; 85007; 85025; 85045; 85610; 85730; 87040; 87086; 87400; 87449; 93005; 93306; 94640; 94660; 94664; 96361; 96365; 96375; 97110; 97116; 97162; 99285

== ENCOUNTER 2018-07-22 10:31 | Observation (INO) ==
[2018-07-22] MEDS ORDERED: LABETALOL HCL 5 MG/ML VIAL IV ONE (12:09)
[2018-07-22 12:28] LABS: Hemoglobin 12.3 gm/dL (12.5-16.0); Mean Corpuscular Hgb Conc 31.5 g/dl (32-36); Mean Platelet Volume 10.6 fl (8-12.5); Neutrophil # 7.8 K/mm3 (1.3-6.0); Neutrophil % 65.5 % (42-75.0); Platelet Count 272 K/mm3 (150-450); Red Blood Count 4.24 M/mm3 (4.2-5.4); Red Cell Distribution Width 14.6 % (11.5-14.0); White Blood Count 11.9 K/mm3 (4.0-10.5)
[2018-07-22 12:46] LABS: Albumin * 3.2 gm/dl (3.4-5.0); Anion Gap 21.8 mmol/L (6.8-13.8); BUN/Creatinine Ratio 23.2 (9.0-21.6); Bilirubin, Total 0.5 mg/dL (0.0-1.1); Ca. Corrected For Albumin 10.2 mg/dL (8.4-10.2); Calcium * 9.9 mg/dL (7.9-10.9); Potassium 3.8 mmol/L (3.4-4.6); T4 Free * 0.97 ng/dL (0.76-1.46); TSH * 13.035 uIU/mL (0.358-3.74); Total Protein 7.7 gm/dL (6.2-8.2)
[2018-07-22 13:06] LABS: Urine Bilirubin Negative (NEGATIVE); Urine Ketone Negative (NEGATIVE); Urine Nitrite Negative (NEGATIVE); Urine Protein >=300 mg/dL (NEGATIVE); Urine Urobilinogen Normal (NORMAL)
[2018-07-22 13:14] LABS: Urine Appearance Slightly Cloudy (CLEAR); Urine Blood 5 /ul (NEGATIVE); Urine Color Pale Yellow
[2018-07-22 13:16] LABS: Urine Bacteria 1+; Urine RBC 0-5 /hpf (0-5); Urine WBC 0-5 /hpf (0-5)
[2018-07-22] MEDS ORDERED: BENZONATATE 100 MG CAPSULE PO PRN (14:27)
[2018-07-22] MEDS ORDERED: BISACODYL 5 MG TABLET.DR PO PRN (14:27)
[2018-07-22] MEDS ORDERED: LEVALBUTEROL HCL 0.63 MG/3 ML AMPUL IH PRN (14:27)
[2018-07-22] MEDS ORDERED: NINTEDANIB 100 MG PO SCH ×2 (14:30→19:00)
[2018-07-22] MEDS: 0.5 NORMAL SALINE 1,000 ML IV PRN (15:44)
[2018-07-22 15:45] LABS: Urine Bilirubin Negative (NEGATIVE); Urine Ketone Negative (NEGATIVE); Urine Nitrite Negative (NEGATIVE); Urine Protein >=300 mg/dL (NEGATIVE); Urine Urobilinogen Normal (NORMAL)
[2018-07-22 15:55] LABS: Urine Appearance Clear (CLEAR); Urine Bacteria TRACE; Urine Blood 5 /ul (NEGATIVE); Urine Color Yellow; Urine WBC None Seen /hpf (0-5)
--- NOTE | 2018-07-22 16:29 | PN ---
[place] Note - Interim Date: 07/22/18 Time: 16:24 Narrative: 07/22/18 16:24 I saw Adelina Lanier on 07/22/2018 at 4:24 PM in the medical surgical floor where she was admitted for uncontrolled hypertension rule out hypertensive urgency/emergency. I reviewed her lab results and other work-up. Her blood pressure did improve to [address]. My clinic notes will serve as my HPI for this admission.
[2018-07-22] MEDS: INSULIN LISPRO 100 UNITS/ML VIAL SC SCH (16:44)
[2018-07-22] MEDS ORDERED: INSULIN LISPRO 100 UNITS/ML VIAL SC SCH (17:00)
[2018-07-22] MEDS ORDERED: RIVAROXABAN 15 MG TABLET PO SCH (17:00)
[2018-07-22] MEDS: NINTEDANIB ESYLATE 100 MG PO SCH (18:38)
[2018-07-22] MEDS: FAMOTIDINE 20 MG TABLET PO SCH (20:18)
[2018-07-22] MEDS ORDERED: METOPROLOL TARTRATE 25 MG TABLET PO SCH (21:00)
[2018-07-22] MEDS ORDERED: MELATONIN 3,000 MCG TABLET PO SCH (21:00)
[2018-07-22] MEDS: NITROFURANTOIN/NITROFURAN MAC 100 MG CAPSULE PO SCH (21:46)
[2018-07-23] MEDS: 0.5 NORMAL SALINE 1,000 ML IV PRN ×2 (00:45→10:52)
[2018-07-23] MEDS: INSULIN LISPRO 100 UNITS/ML VIAL SC SCH ×2 (06:54→11:37)
[2018-07-23] MEDS ORDERED: LEVOTHYROXINE SODIUM 75 MCG TABLET PO SCH (07:00)
[2018-07-23] MEDS ORDERED: LEVOTHYROXINE SODIUM 50 MCG TABLET PO SCH (07:00)
[2018-07-23] MEDS ORDERED: NITROFURANTOIN/NITROFURAN MAC 100 MG CAPSULE PO SCH (08:15)
[2018-07-23 08:27] LABS: Hemoglobin 10.1 gm/dL (12.5-16.0); Mean Cell Volume 91.4 fl (78-100); Mean Corpuscular Hemoglobin 28.9 pg (27-31); Mean Corpuscular Hgb Conc 31.6 g/dl (32-36); Mean Platelet Volume 10.3 fl (8-12.5); Neutrophil # 3.4 K/mm3 (1.3-6.0); Neutrophil % 55.1 % (42-75.0); Platelet Count 161 K/mm3 (150-450); Red Cell Distribution Width 14.4 % (11.5-14.0); White Blood Count 6.2 K/mm3 (4.0-10.5)
--- NOTE | 2018-07-23 08:29 | PN ---
[facility] Note - Interim Date: 07/23/18 Time: 08:26 Narrative: 07/23/18 08:26 Feels better clinically. Await US of her abdomen for her elevated lipase. BP meds increased. possible discharge today.
[2018-07-23 08:39] LABS: Albumin * 2.4 gm/dl (3.4-5.0); Anion Gap 13.7 mmol/L (6.8-13.8); Bilirubin, Total 0.6 mg/dL (0.0-1.1); Ca. Corrected For Albumin 9.4 mg/dL (8.4-10.2); Calcium * 8.4 mg/dL (7.9-10.9); Carbon Dioxide 26.7 mmol/L (24-32.6); Potassium 3.4 mmol/L (3.4-4.6); Total Protein 6.1 gm/dL (6.2-8.2)
[2018-07-23] MEDS: NINTEDANIB ESYLATE 100 MG PO SCH (08:41)
[2018-07-23] MEDS: FAMOTIDINE 20 MG TABLET PO SCH (08:43)
[2018-07-23] MEDS: NITROFURANTOIN/NITROFURAN MAC 100 MG CAPSULE PO SCH (08:46)
[2018-07-23] MEDS ORDERED: DOCUSATE SODIUM 100 MG CAPSULE PO SCH (09:00)
[2018-07-23] MEDS ORDERED: IRON POLYSACCHARIDE COMPLEX 1 CAP CAPSULE PO SCH (09:00)
[2018-07-23] MEDS ORDERED: MULTIVITAMINS 1 CAP CAPSULE PO SCH (09:00)
[2018-07-23] MEDS ORDERED: LOSARTAN POTASSIUM 50 MG TABLET PO SCH ×2 (09:00)
[2018-07-23] MEDS ORDERED: CHOLECALCIFEROL 400 UNIT TABLET PO SCH (09:00)
[2018-07-23] MEDS ORDERED: METOPROLOL TARTRATE 25 MG TABLET PO SCH (09:00)
[2018-07-23] MEDS ORDERED: PROPRANOLOL HCL 20 MG TABLET PO SCH (09:00)
[2018-07-23] MEDS ORDERED: FUROSEMIDE 20 MG TABLET PO SCH (09:00)
[2018-07-23 13:26] LABS: Iron 41 mcg/dL (35-120); Transferrin Sat. (% Sat.) 17 % (15-55)
[2018-07-23 13:53] LABS: Ferritin 23 ng/mL (8-252); Vitamin B12 1451 pg/mL (193-986)
--- NOTE | 2018-07-23 14:16 | DS ---
(1) Hypertension, uncontrolled Problem: Resolved (2) Complex renal cyst Problem: Acute (3) Elevated lipase Problem: Acute (4) Pulmonary interstitial fibrosis Problem: Chronic (5) CRF (chronic renal failure) Problem: Chronic Qualifiers: Chronic kidney disease stage: stage 3 (moderate) (6) Diabetes mellitus Problem: Chronic Qualifiers: Diabetes mellitus type: type 2 (7) Hyperlipidemia Problem: Chronic Qualifiers: Hyperlipidemia type: pure hypercholesterolemia (8) Hypothyroidism Problem: Chronic Qualifiers: Hypothyroidism type: acquired Qualified Code(s): E03.9 - Hypothyroidism, unspecified (9) Pulmonary hypertension Problem: Chronic Description of Stay: Adelina Lanier is an 87 year old female patient who was admitted from my office on 07/22/2018 after she went to the ER for Hypertension and they sent her to the office. Her blood pressure this morning was 212/102. She had taken her BP medications prior to going to ER. One day [employer] her daughter noticed that her blood pressure was ranging from 150-180/60-80 at her pulmonary rehab program which went down to 168 with rest. She brought her home and at home her blood pressure went up again to 185/85 then later two 219- 207/96-110 and so they called our office. She was sent to the ER yesterday for Hypertension and stroke like symptoms. She was treated for a UTI. She was told to follow up with Dr. jOeda today for blood pressure medications The patient's blood pressure upon arrival to our office today was 200/102. Per daughter she has been noticing some speech/thought process disturbances , on and off from her mother. She also was nauseous and vomited the night before yesterday. Her repeat BP was 200/90. She will be admitted for observation and further work up for possible hypertensive urgency/emergency. Her head CTS showed no acute intracranial process, EKG showed NSR with normal troponin, her GFR was 35 with Cr of 1.5, lipase was 600. Her SBP dropped down to 165 in th e floor and Labetalol was not given. Her abdominal US showed right complex cyst and dilated biliary ducts which may be compatible with her prior cholecystectomy. Her lipase has gone down to 500. Her Hb went down to 10 from 12 after IVF which could be dilutional but I added anemia work up to her labs. She is stable to go home today and will schedule a CTS of her abdomen and pelvis to look at her complex cyst and pancreas on outpatient basis . she has rods in her back and cannot do MRI. I will increase her Valsartan to 200 mg PO q daily from 160. If her BP goes up high the daughter knows to add additional 40 mg to it. Her metoprolol has been increased to 25 mg PO BID. I will see her in the clinic in 1 week. 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 The need for home health care is for monitoring of her vital signs, medication set up. Need for physical therapy is for strengthening exercises for her deconditioning and weakness so she can increase her activities of daily living. The need for home health care's skilled services is directly related to the time spent [id number] with the person. Procedures Performed: none Results and Findings: Lab Pending Results 07/22/18 11:28: Troponin I Less than 0.017 07/22/18 12:21: WBC 11.9 H, RBC 4.24, Hgb 12.3 L, Hct 39.0, MCV 92.0, MCH 29.0, MCHC 31.5 L, RDW 14.6 H, Plt Count 272, MPV 10.6, Immature Gran % (Auto) 0.30, Immature Gran # (Auto) 0.04 H, Neutrophils % 65.5, Lymphocytes % 21.7, Monocytes % 6.1, Eosinophils % 5.6 H, Basophils % 0.8, Nucleated RBC % 0.0, Neutrophils # 7.8 H, Lymphocytes # 2.57, Monocytes # 0.7, Eosinophils # 0.7, Absolute Basophils 0.1 07/22/18 12:21: Sodium 143 H, Plasma Sodium 143 H, Potassium 3.8, Chloride 96 L, Carbon Dioxide 29.0, Anion Gap 21.8 H, BUN 35 H, Creatinine 1.51 H, Est GFR (Non-Af Amer) 35 L, BUN/Creatinine Ratio 23.2 H, Random Glucose 111 H, Calcium 9.9, Calcium Adj for Albumin 10.2, Total Bilirubin 0.5, AST 43, ALT 53, Alkaline Phosphatase 116, Total Protein 7.7, Albumin 3.2 L, Amylase 110, Lipase 600 H, TSH 13.035 H, Free T4 0.97 07/22/18 12:45: Urine Color Pale yellow, Urine Appearance Slightly cloudy, Urine pH 6.0, Ur Specific [place] 1.020, Urine Protein >=300 H, Urine Glucose (UA) Negative, Urine Ketones Negative, Urine Blood 5 H, Urine Nitrate Negative, Urine Bilirubin Negative, Prot Sulfosalicylic Acd 4+ H, Urine Urobilinogen Normal, Ur Leukocyte Esterase 25 H, Urine RBC 0-5, Urine WBC 0-5, Ur Epithelial Cells 5-10 H, Urine Bacteria 1+ H 07/22/18 15:38: Urine Color Yellow, Urine Appearance Clear, Urine pH 6.0, Ur Specific [place] 1.020, Urine Protein >=300 H, Urine Glucose (UA) Negative, Urine Ketones Negative, Urine Blood 5 H, Urine Nitrate Negative, Urine Bilirubin Negative, Prot Sulfosalicylic Acd 4+ H, Urine Urobilinogen Normal, Ur Leukocyte Esterase Negative, Urine RBC 5-10 H, Urine WBC None seen, Ur Epithelial Cells 0- 5, Urine Bacteria Trace, Urine Culture Comments No culture indicated 07/22/18 20:47: Troponin I Less than 0.017 07/23/18 08:20: WBC 6.2 D, RBC 3.50 L, Hgb 10.1 L, Hct 32.0 L, MCV 91.4, MCH 28.9, MCHC 31.6 L, RDW 14.4 H, Plt Count 161, MPV 10.3, Immature Gran % (Auto) 0.20, Immature Gran # (Auto) 0.01, Neutrophils % 55.1, Lymphocytes % 26.6, Monocytes % 9.4 H, Eosinophils % 7.9 H, Basophils % 0.8, Nucleated RBC % 0.0, Neutrophils # 3.4, Lymphocytes # 1.65, Monocytes # 0.6, Eosinophils # 0.5, Absolute Basophils 0.1 07/23/18 08:20: Sodium 138, Plasma Sodium 138, Potassium 3.4, Chloride 101, Carbon Dioxide 26.7, Anion Gap 13.7, BUN 26 H, Creatinine 1.30, Est GFR (Non-Af Amer) 41 L, BUN/Creatinine Ratio 20.0, Random Glucose 127 H, Calcium 8.4, Calcium Adj for Albumin 9.4, Total Bilirubin 0.6, AST 31, ALT 35, Alkaline Phosphatase 92, Total Protein 6.1 L, Albumin 2.4 L, Lipase 507 H 07/23/18 08:20: Iron 41, TIBC 247 L, Transferrin % Sat 17 Discharge Location: Home Disposition: Home Health Service Home Health Agency: [facility] Home Health Condition: Stable Face to Face Encounter completed per [facility] Guidelines: Yes Discharge Activity: Activity as tolerated Discharge Diet: Consistent carbs, Low salt Referrals: Balbir Ojeda MD [Primary Care Provider] - Additional Patient Instructions (free text): -[facility] Home Health at discharge-medication management, oxygen level checks, and blood glucose monitoring. -Please make TCM appointment unless prison discharge. Thank you! Georgina @ [phone]. Follow up with PCP. Prescriptions (Any new or edited meds): Metoprolol Tartrate [Lopressor] 25 mg PO BID #60 tab Nitrofurantoin/Nitrofuran Mac [Macrobid] 100 mg PO Q12H 3 Days #6 cap Valsartan 40 mg PO DAILY #60 tab Complete Home Medications List: Complete Home Medication List: benzonatate 100 mg capsule 100 mg PO .COMPLEX PRN #30 cap 05/19/18 bisacodyl 5 mg tablet 10 mg PO DAILY PRN #60 tab 05/19/18 blood sugar diagnostic strips See Dose Instructions .ROUTE .MEDSUPPLY #100 ea 05/19/18 blood-glucose meter See Dose Instructions .ROUTE .MEDSUPPLY #1 ea 05/19/18 cholecalciferol (vitamin D3) 400 unit capsule 400 unit PO DAILY #30 cap 05/19/18 docusate sodium 100 mg capsule 200 mg PO DAILY #60 cap 05/19/18 famotidine 20 mg tablet 20 mg PO BID #60 tab 05/19/18 furosemide 20 mg tablet 20 mg PO DAILY #30 tab 05/19/18 glipizide 10 mg tablet 10 mg PO DAILY #30 tab 05/19/18 levalbuterol 0.63 mg/3 mL solution for nebulization 0.63 mg IH Q4H PRN #90 ml 05/19/18 levothyroxine 50 mcg tablet 50 mcg PO DAILY #30 tab 05/19/18 melatonin 3 mg tablet 3 mg PO HS #30 tab 05/19/18 metformin ER 1,000 mg tablet,extended release 24hr 1,000 mg PO DAILY #30 tab 05/19/18 multivitamin tablet 1 tab PO DAILY #30 tab 05/19/18 polysaccharide iron complex 150 mg iron capsule 150 mg PO DAILY #30 cap 05/19/18 valsartan 160 mg tablet 160 mg PO DAILY #30 tab 05/19/18 rivaroxaban 15 mg tablet 15 mg PO QPM #30 tab 05/24/18 nintedanib 100 mg capsule 100 mg PO Q12H 06/08/18 Nintedanib Esylate [Ofev] 100 mg PO Q12H 07/22/18 Metoprolol Tartrate [Lopressor] 25 mg PO BID #60 tab 07/23/18 Nitrofurantoin/Nitrofuran Mac [Macrobid] 100 mg PO Q12H 3 Days #6 cap 07/23/18 Valsartan 40 mg PO DAILY #60 tab 07/23/18 Amb Orders for Discharge: CT Abdomen/Pelvis W/WO Time Frame: 3 Days, Location: Radiology
[2018-07-23] MEDS ORDERED: amLODIPine BESYLATE 10 MG TABLET PO ONE (15:05)
[2018-07-23 16:48] VITALS: BP 151/74
== END 2018-07-23 17:20 | disposition home health service (06) ==
LOC: CCFAL → MS 10:31
PROVIDERS: ADMIT Internal Medicine; ATTEND Internal Medicine
DX: E11.9 Type 2 diabetes mellitus without complications; J84.10 Pulmonary fibrosis, unspecified; I27.20 Pulmonary hypertension, unspecified; N18.3 Chronic kidney disease, stage 3 (moderate); E78.5 Hyperlipidemia, unspecified; E03.9 Hypothyroidism, unspecified; N28.1 Cyst of kidney, acquired
CPT/HCPCS: 36415; 70450; 76700; 80053; 81001; 82150; 82607; 82728; 82746; 83540; 83550; 83690; 84439; 84443; 84466; 84484; 85025; 87086; 93005; 96360; 96361; G0378; G0379